=== PATIENT | male | born 1955 | race Caucasian/White ===

== ENCOUNTER → 2016-10-24 | Outpatient (CLI) | payer SELFPAY ==
--- NOTE | 2016-10-25 09:10 | CT ---
CLINICAL INDICATION: Screening COMPARISON: None PROCEDURE: Gated acquisition of images through the mediastinum was performed without contrast. Data set was used for calcium scoring. FINDINGS: Total coronary calcium score is 726 LM: 114 LAD: 83 LCX: 276 RCA: 253 Extracardiac findings: No pathologically enlarged lymph nodes. The visualized portions of aorta are unremarkable. No airs pace disease, effusion, or pneumothorax identified. Normal-sized heart. The soft tissues and osseous structures are unremarkable. Evaluation is limited without IV contrast. IMPRESSION: 1. Total calcium score of 726, placing the patient at approximately the 75th to 90th percentile for males of equivalent age. The calcium score is compatible with extensive atherosclerotic plaque with a high likelihood of at least 1 significant coronary narrowing. Reported By:
== END ==
LOC: RAD 15:26
PROVIDERS: ATTEND Internal Medicine
DX: Z13.6 Encounter for screening for cardiovascular disorders (principal)

== ENCOUNTER 2022-06-19 13:14 | Observation (INO) ==
[2022-06-19 13:27] VITALS: BMI 31.2
--- NOTE | 2022-06-19 13:31 | DR.CP ---
HPI Time Seen Time Seen by Provider: 06/19/22 13:30 PCP Primary Care Physician: betito Complaint Chief Complaint Doctor Comments: 66 y/o male presents for evaluation. Not feeling well for past several months. Has a worsening cough, with chest congestion, ovver the past several days. Had a + covid test at home yesterday. Having generalized weakness. Has recurrent R hip pain, since falling , recently. Pain worse with standing, sharp, does not radiate. Worse with standing, walking. Better with rest. + cough, productive of congestion. + running fever, with chills, since yesterday. Denies nausea, vomiting, diarrhea, urinary problems. Chief Complaint:: pt states that he fell today when trying to sit back down in his recliner and couldnt get back up. pt denies chest pain. pt took covid test yesterday and was positive. pt has also had cough and congestion since april when he got his flu shot. Reviewed Nurses Notes Review: Yes Source History Provided: Patient Mode of Arrival Mode of Arrival: EMS Timing Onset of Chief Complaint: 06/19/22 PMH PMH Past Medical History: Yes Past Medical History: Hypertension Past Surgical History: Yes Surgical History: Cholecystectomy Family History History of Family Medical Conditions: Yes Family Medical History: NH, Coronary Artery Disease and Hypertension Social History Does patient currently use any type of tobacco product: No Have you used tobacco products in the last 12 months: No Type of Tobacco Use: None Does any household member use tobacco: No Alcohol Use: None Do you use any recreational Drugs:: No Lives With: Alone Lives Where: Home Infectious screening In the last 2 months have you had wt loss of >10#?: NO Have you had fever, night sweats or hemotysis?: No Have you traveled outside the country in the last 6 months?: No Isolation: Droplet ROS Review of Systems Constitutional: Chills, Fever and Weakness Eyes: No Symptoms Reported ENTM: Nose Congestion Respiratoy: Productive Cough and Short of Breath Cardiovascular: No Symptoms Reported Gastrointestinal/Abdominal: No Symptoms Reported Genitourinary: No Symptoms Reported Neurological: Weakness Musculoskeletal: Right and Hip Integumentary: No Symptoms Reported Hematologic/Lymphatic: No Symptoms Reported Psychiatric: No Symptoms Reported All Other Systems: Reviewed and Negative PE Vitals Vitals: Temperature 101.3 F Pulse Rate 76 Respiratory Rate 35 Blood Pressure [Left Arm] 149/71 Blood Pressure 113/55 O2 Sat by Pulse Oximetry 97 General General Appearance: Alert and In No Apparent Distress Head Head Exam: Normal Inspection Eyes Eye exam: PERRL and EOMI ENT ENT Exam: Normal Oropharynx and Mucous Membranes Moist Respiratory Respiratory Exam: Normal Lung Sounds Bilat; negative Accessory Muscle Use or Respiratory Distress Respiratory Exam: Bilateral: Clear to Auscultation Cardiovascular Cardiovascular Exam: Regular Rate, Normal Rhythm and Normal Heart Sounds Abdominal Exam Abdominal Exam: Normal Bowel Sounds and Soft; negative Tenderness Extremities Extremities Exam: Normal Inspection and Other (has good internal/external ROM of R hip); negative Edema Back Back Exam: Normal Inspection; negative Tenderness Psychiatric Psychiatric Exam: Normal Affect Skin Skin Exam: Warm and Dry COURSE Treatment Treatment: 66 y/o male with cough, + for covid at home. W/u initiated. + for Covid here. CXR with mild changes, c/w viral respiratory infection. Labs overall acceptable. Pulse ox droppin to 90-91% at rest. Placed on O2. Labs overall acceptable. Discussed with Dr Holloway, will admit to Dr Gutierrez, for Covid. Treated with IV steroids. R hip x-ray done, no fractures from earlier fall at home. ROR Labs Reviewed Laboratory Results Reviewed?: Yes Result Diagrams: 06/19/22 13:50 06/19/22 13:50 Laboratory: WBC 9.5 X10^3/uL (3.6-10.0) 06/19/22 13:50 RBC 3.59 X10^6/uL (4.7-6.0) L 06/19/22 13:50 Hgb 10.8 g/dL (13.5-18.0) L 06/19/22 13:50 Hct 32.5 % (42.0-54.0) L 06/19/22 13:50 MCV 90.5 fL (80.0-100.0) 06/19/22 13:50 MCH 30.0 pg (27.0-34.0) 06/19/22 13:50 MCHC 33.2 g/dL (33.0-35.0) 06/19/22 13:50 RDW 15.5 % (11.6-16.5) 06/19/22 13:50 Plt Count 194 X10^3/uL (150.0-450.0) 06/19/22 13:50 MPV 7.9 fL (7.4-11.0) 06/19/22 13:50 Neut % (Auto) 84.5 % (42.0-75.0) H 06/19/22 13:50 Lymph % (Auto) 7.2 % (21.0-51.0) L 06/19/22 13:50 Johnston % (Auto) 7.7 % (0.0-13.0) 06/19/22 13:50 Eos % (Auto) 0.1 % (0.9-2.9) L 06/19/22 13:50 Baso % (Auto) 0.5 % (0.2-1.0) 06/19/22 13:50 Neut # (Auto) 8.1 x10^3/uL (2.2-4.8) H 06/19/22 13:50 Lymph # (Auto) 0.7 X10^3/uL (1.3-2.9) L 06/19/22 13:50 Johnston # (Auto) 0.7 x10^3/uL (0.3-0.8) 06/19/22 13:50 Eos # (Auto) 0.0 x10^3/uL (0.0-0.2) 06/19/22 13:50 Baso # (Auto) 0.0 X10^3/uL (0.0-0.1) 06/19/22 13:50 Absolute Nucleated RBC 0.0 /100WBC 06/19/22 13:50 D-Dimer 1.84 ug/ml (0.0-0.57) H 06/19/22 18:54 Sodium 135 mmol/L (136-145) L 06/19/22 13:50 Corrected Sodium 135 mmol/L (136-145) L 06/19/22 13:50 Potassium 4.4 mmol/L (3.5-5.1) 06/19/22 13:50 Chloride 100 mmol/L (98-107) 06/19/22 13:50 Carbon Dioxide 26.8 mmol/L (21-32) 06/19/22 13:50 BUN 16 mg/dL (7-18) 06/19/22 13:50 Creatinine 1.21 mg/dL (0.70-1.30) 06/19/22 13:50 Est GFR (MDRD) Af Amer > 60 (>60) 06/19/22 13:50 Est GFR (MDRD) Non-Af > 60 (>60) 06/19/22 13:50 Glucose 120 mg/dL (65-99) H 06/19/22 13:50 Calcium 8.4 mg/dL (8.5-10.1) L 06/19/22 13:50 Corrected Calcium TNP 06/19/22 13:50 Total Bilirubin 0.20 mg/dL (0.2-1.0) 06/19/22 13:50 AST 22 Units/L (15-37) 06/19/22 13:50 ALT 17 Units/L (12-78) 06/19/22 13:50 Alkaline Phosphatase 76 Units/L (46-116) 06/19/22 13:50 B-Natriuretic Peptide 212 pg/mL (0-79) H 06/19/22 18:54 Total Protein 7.1 g/dL (6.4-8.2) 06/19/22 13:50 Albumin 3.6 g/dL (3.4-5.0) 06/19/22 13:50 Globulin 3.5 g/dL (2.5-4.5) 06/19/22 13:50 Albumin/Globulin Ratio 1.0 Ratio (1.1-2.1) L 06/19/22 13:50 Lipase 150 Units/L (73-393) 06/19/22 13:50 Specimen Type Clean catch urine 06/19/22 14:09 Urine Color Yellow (YELLOW) 06/19/22 14:09 Urine Appearance Slightly hazy (CLEAR) 06/19/22 14:09 Urine pH 5.0 (5.0 - 8.0) 06/19/22 14:09 Ur Specific [place] 1.015 (1.000-1.030) 06/19/22 14:09 Urine Protein 2+ (NEGATIVE) 06/19/22 14:09 Urine Glucose (UA) Negative (NEGATIVE) 06/19/22 14:09 Urine Ketones 2+ (NEGATIVE) 06/19/22 14:09 Urine Blood Negative (NEGATIVE) 06/19/22 14:09 Urine Nitrite Negative (NEGATIVE) 06/19/22 14:09 Urine Bilirubin Negative (NEGATIVE) 06/19/22 14:09 Urine Urobilinogen Normal (NORMAL) 06/19/22 14:09 Ur Leukocyte Esterase 1+ (NEGATIVE) 06/19/22 14:09 Urine RBC 0-2 /HPF (0-3) 06/19/22 14:09 Urine WBC 3-5 /HPF (0-5) 06/19/22 14:09 Ur Squamous Epith Cells Rare /HPF (NEGATIVE) 06/19/22 14:09 Urine Bacteria Trace /HPF (NEGATIVE) 06/19/22 14:09 Urine Mucus Rare /HPF (NEGATIVE) 06/19/22 14:09 Ur Culture Indicated? No/not indicated 06/19/22 14:09 SARS-CoV-2 (PCR) Positive (NEGATIVE) A 06/19/22 14:00 Influenza Type A (PCR) Negative (NEGATIVE) 06/19/22 14:00 Influenza Type B (PCR) Negative (NEGATIVE) 06/19/22 14:00 RSV (PCR) Negative (NEGATIVE) 06/19/22 14:00 + Covid Opioid Opioid Risk Tool Age (Chase box if 16-45): No History of Preadolescent Sexual Abuse: No Total: 0 Total Score Risk Category: Low Risk Copyright: John FRY predicting aberrant behaviors Discharge Plan Diagnosis Discharge Problem: COVID-19 virus infection, Hypoxia Discharge Plan Patient Disposition: 30 STILL A PATIENT Condition: Stable Orders to Discharge Patient Discharge Orders: Transfer (Routine); Ordered 06/19/22 Ordered By: Derek Aguayo
[2022-06-19] MEDS ORDERED: NS 1,000 ML IV 1,000 ML IV ONE (13:39)
[2022-06-19] MEDS ORDERED: TYLENOL 500 MG TAB EXTRA STRENGTH PO ONE ×2 (13:40→13:58)
[2022-06-19] MEDS ORDERED: NS 1,000 ML IV 1,000 ML ONE (13:58)
[2022-06-19 13:59] LABS: BASOPHILS % (AUTO) 0.5 % (0.2-1.0); EOSINOPHILS % (AUTO) 0.1 % (0.9-2.9); HEMATOCRIT 32.5 % (42.0-54.0); HEMOGLOBIN 10.8 g/dL (13.5-18.0); LYMPHOCYTES # (AUTO) 0.7 X10^3/uL (1.3-2.9); LYMPHOCYTES % (AUTO) 7.2 % (21.0-51.0); MEAN CORPUSCULAR HGB CONC 33.2 g/dL (33.0-35.0); MEAN CORPUSCULAR VOLUME 90.5 fL (80.0-100.0); MEAN PLATELET VOLUME 7.9 fL (7.4-11.0); MONOCYTES # (AUTO) 0.7 x10^3/uL (0.3-0.8); MONOCYTES % (AUTO) 7.7 % (0.0-13.0); NEUTROPHILS # (AUTO) 8.1 x10^3/uL (2.2-4.8); NEUTROPHILS % (AUTO) 84.5 % (42.0-75.0); RED BLOOD COUNT 3.59 X10^6/uL (4.7-6.0); RED CELL DISTRIBUTION WIDTH 15.5 % (11.6-16.5); WHITE BLOOD COUNT 9.5 X10^3/uL (3.6-10.0)
[2022-06-19 14:09] LABS: ALANINE AMINOTRANSFERASE 17 Units/L (12-78); ALBUMIN 3.6 g/dL (3.4-5.0); ALKALINE PHOSPHATASE 76 Units/L (46-116); ASPARTATE AMINO TRANSFERASE 22 Units/L (15-37); BLOOD UREA NITROGEN 16 mg/dL (7-18); CALCIUM 8.4 mg/dL (8.5-10.1); CARBON DIOXIDE 26.8 mmol/L (21-32); CHLORIDE 100 mmol/L (98-107); COR NA(FOR HYPERGLY) 135 mmol/L (136-145); CREATININE 1.21 mg/dL (0.70-1.30); LIPASE 150 Units/L (73-393); SODIUM 135 mmol/L (136-145); TOTAL PROTEIN 7.1 g/dL (6.4-8.2); eGFR NON BLACK RACES > 60 (>60)
[2022-06-19 14:15] LABS: BILIRUBIN,URINE NEGATIVE (NEGATIVE); BLOOD/HEMOGLOBIN,URINE NEGATIVE (NEGATIVE); GLUCOSE, URINE NEGATIVE (NEGATIVE); KETONES,URINE 2+ (NEGATIVE); LEUKOCYTE ESTERASE ,URINE 1+ (NEGATIVE); NITRITES,URINE NEGATIVE (NEGATIVE); PROTEIN,URINE 2+ (NEGATIVE); UROBILINOGEN,URINE NORMAL (NORMAL)
[2022-06-19 14:23] LABS: APPEARANCE,URINE SLIGHTLY HAZY (CLEAR); BACTERIA,URINE TRACE /HPF (NEGATIVE); COLOR,URINE YELLOW (YELLOW); RBC,URINE 0-2 /HPF (0-3); SQUAMOUS EPITHELIAL CELL,UR RARE /HPF (NEGATIVE)
--- NOTE | 2022-06-19 14:47 | RAD ---
HISTORYSOB, COVID HTN. ORTHO[Cough]. [Dyspnea].[Single portable view] of the chest.Comparison: [None].Findings:The trachea is midline. The cardiac silhouette is unremarkable.There are increased interstitial opacities seen, suggesting a bronchitis or a viral respiratory infection. Please correlate medically and clinically. The remaining lungs [are otherwise clear without focal infiltrate or pleural effusion]. The bony thorax [is unremarkable].IMPRESSION:Chest findings suggesting a viral respiratory tract infection, as above.No lobar infiltrates or pleural effusion seen. Please correlate medically.Electronically signed by: CLAYTON MCNALLY III (Jun 19, 2022 14:45:51)
[2022-06-19] MEDS ORDERED: TUSSIONEX PENNKINETIC SUSP PO PRN (18:14)
[2022-06-19] MEDS ORDERED: TYLENOL 325 MG TAB PO PRN (20:02)
[2022-06-19] MEDS ORDERED: NS 1/2 1,000 ML IV 1,000 ML IV ONE (20:33)
[2022-06-19] MEDS ORDERED: REMDESIVIR 200 MG in NS 250 ML IV 250 ML IV ONE (20:40)
[2022-06-19] MEDS: NS 1/2 1,000 ML IV 1,000 ML IV SCH (20:44)
[2022-06-19] MEDS: SNACK - Diabetic Appropriate PO SCH (20:44)
[2022-06-19] MEDS: SOLU-Medrol 125 MG VIAL IVP SCH (20:44)
[2022-06-19] MEDS: MILK OF MAGNESIA PO SCH (20:45)
[2022-06-19] MEDS: THIAMINE HCL INJ IVP SCH (20:45)
[2022-06-19] MEDS: MELATONIN PO SCH (20:47)
[2022-06-19] MEDS: KLONOPIN TAB 1 MG PO SCH (20:47)
[2022-06-19] MEDS: LIPITOR TAB 80 MG PO SCH (20:47)
[2022-06-19] MEDS: ASCORBIC ACID INJ MULTI-DOSE VIAL 1,500 MG in NS 50 ML IV 50 ML IV SCH (20:47)
--- NOTE | 2022-06-19 20:47 | RAD ---
HISTORYS/P FALL THIS AM, C/O PAIN RT HIPSTUDYHIP-RIGHTCOMPARISONNone availableTECHNIQUERight hip radiographs, 2 views, AP pelvis and frog leg lateral projectionsFINDINGSNo fracture or dislocation.Mild bilateral hip joint degenerative changes.Soft tissues are unremarkable.IMPRESSIONNo acute osseous abnormality.Electronically signed by: Leandro Barraza (Jun 19, 2022 20:45:07)
[2022-06-19] MEDS: PULMICORT NEB TX 0.5 MG NEB SCH (20:56)
[2022-06-19] MEDS: ACCUNEB 1.25 MG NEBULE NEB SCH (20:56)
[2022-06-19] MEDS ORDERED: ELIQUIS PO SCH (21:00)
[2022-06-19] MEDS: TESSALON PERLES PO SCH (21:59)
[2022-06-20] MEDS: SOLU-Medrol 125 MG VIAL IVP SCH ×4 (02:37→20:38)
[2022-06-20] MEDS: ASCORBIC ACID INJ MULTI-DOSE VIAL 1,500 MG in NS 50 ML IV 50 ML IV SCH ×4 (02:38→20:40)
[2022-06-20 05:15] LABS: BASOPHILS % (AUTO) 0.3 % (0.2-1.0); HEMATOCRIT 31.7 % (42.0-54.0); HEMOGLOBIN 10.8 g/dL (13.5-18.0); LYMPHOCYTES # (AUTO) 0.5 X10^3/uL (1.3-2.9); LYMPHOCYTES % (AUTO) 5.5 % (21.0-51.0); MEAN CORPUSCULAR HEMOGLOBIN 30.6 pg (27.0-34.0); MEAN PLATELET VOLUME 9.2 fL (7.4-11.0); MONOCYTES # (AUTO) 0.3 x10^3/uL (0.3-0.8); MONOCYTES % (AUTO) 3.4 % (0.0-13.0); NEUTROPHILS # (AUTO) 7.6 x10^3/uL (2.2-4.8); NEUTROPHILS % (AUTO) 90.8 % (42.0-75.0); RED BLOOD COUNT 3.52 X10^6/uL (4.7-6.0); RED CELL DISTRIBUTION WIDTH 15.5 % (11.6-16.5); WHITE BLOOD COUNT 8.4 X10^3/uL (3.6-10.0)
[2022-06-20] MEDS: TESSALON PERLES PO SCH ×3 (05:26→20:59)
[2022-06-20 05:28] LABS: ALANINE AMINOTRANSFERASE 15 Units/L (12-78); ALBUMIN 3.2 g/dL (3.4-5.0); ALKALINE PHOSPHATASE 69 Units/L (46-116); ASPARTATE AMINO TRANSFERASE 19 Units/L (15-37); BLOOD UREA NITROGEN 17 mg/dL (7-18); CALCIUM 8.3 mg/dL (8.5-10.1); CHLORIDE 103 mmol/L (98-107); COR CA(FOR HYPOALB) 8.9 mg/dL (8.5-10.1); COR NA(FOR HYPERGLY) 138 mmol/L (136-145); CREATINE KINASE 131 Units/L (39-308); CREATININE 0.98 mg/dL (0.70-1.30); SODIUM 137 mmol/L (136-145); TOTAL PROTEIN 6.9 g/dL (6.4-8.2); eGFR NON BLACK RACES > 60 (>60)
[2022-06-20 05:33] LABS: BAND NEUTROPHILS % 8 % (0-10)
[2022-06-20 05:34] LABS: PLATELET MORPHOLOGY COMMENT NORMAL (NORMAL)
[2022-06-20 06:02] LABS: ABG ALLEN TEST POS; ABG BASE EXCESS 1.6 mmol/L (-2.0-2.0); ABG HCO3 27.2 mmol/L (22-26)
--- NOTE | 2022-06-20 08:01 | RAD ---
HISTORYCOVID; HYPOXIASTUDYCHEST, 1 [id number]/06/2022.TECHNIQUEAP view of the chestFINDINGSThe cardiac and mediastinal contours appear stable. Similar appearing mild scattered interstitial opacities. No definite pleural effusion or pneumothorax.IMPRESSIONNo significant change compared to prior radiograph.Electronically signed by: Jefe Costa (Jun 20, 2022 08:00:02)
[2022-06-20] MEDS: LOVENOX INJ 100 MG SYR SC SCH (09:20)
[2022-06-20] MEDS: ZyrTEC TAB 10 MG PO SCH (09:20)
[2022-06-20] MEDS: ACCUNEB 1.25 MG NEBULE NEB SCH ×4 (09:20→21:10)
[2022-06-20] MEDS: PROTONIX INJ 40 MG VIAL IVP SCH (09:20)
[2022-06-20] MEDS: CYMBALTA PO SCH (09:20)
[2022-06-20] MEDS: THIAMINE HCL INJ IVP SCH ×2 (09:20→20:38)
[2022-06-20] MEDS: ASPIRIN EC 81 MG PO SCH (09:20)
[2022-06-20] MEDS: MILK OF MAGNESIA PO SCH ×2 (09:20→20:37)
[2022-06-20] MEDS: PULMICORT NEB TX 0.5 MG NEB SCH ×2 (09:20→21:10)
[2022-06-20] MEDS: ZINC SULFATE PO SCH (09:20)
[2022-06-20] MEDS: ZESTRIL TAB 40 MG PO SCH (09:20)
[2022-06-20] MEDS: VITAMIN D3 125 mcg (5,000 UNITS) PO SCH (09:20)
[2022-06-20] MEDS: LEVAQUIN PREMIX IV 500 MG 500 MG/100 ML BAG IV SCH (09:20)
[2022-06-20] MEDS: NS 1/2 1,000 ML IV 1,000 ML IV SCH ×2 (09:52→20:36)
[2022-06-20] MEDS: REMDESIVIR 100 MG in NS 250 ML IV 250 ML IV SCH (14:27)
[2022-06-20] MEDS: NovoLIN R (or HumuLIN R) SUBCUT PRN (17:11)
[2022-06-20] MEDS ORDERED: NS 1/2 1,000 ML IV 1,000 ML IV ONE (19:03)
[2022-06-20] MEDS: LIPITOR TAB 80 MG PO SCH (20:37)
[2022-06-20] MEDS: SNACK - Diabetic Appropriate PO SCH (20:38)
[2022-06-20] MEDS: KLONOPIN TAB 1 MG PO SCH (20:39)
[2022-06-20] MEDS: MELATONIN PO SCH (20:40)
[2022-06-21] MEDS ORDERED: NS 1/2 1,000 ML IV 1,000 ML IV ONE ×2 (03:06→20:43)
[2022-06-21] MEDS: ASCORBIC ACID INJ MULTI-DOSE VIAL 1,500 MG in NS 50 ML IV 50 ML IV SCH ×4 (03:14→20:59)
[2022-06-21] MEDS: SOLU-Medrol 125 MG VIAL IVP SCH ×4 (03:14→21:03)
[2022-06-21] MEDS: NS 1/2 1,000 ML IV 1,000 ML IV SCH ×3 (03:15→23:21)
[2022-06-21] MEDS: TESSALON PERLES PO SCH ×3 (05:26→21:01)
[2022-06-21 06:09] LABS: BASOPHILS % (AUTO) 0.2 % (0.2-1.0); HEMATOCRIT 30.5 % (42.0-54.0); HEMOGLOBIN 10.4 g/dL (13.5-18.0); LYMPHOCYTES # (AUTO) 0.8 X10^3/uL (1.3-2.9); LYMPHOCYTES % (AUTO) 5.8 % (21.0-51.0); MEAN CORPUSCULAR HEMOGLOBIN 30.3 pg (27.0-34.0); MEAN CORPUSCULAR HGB CONC 34.2 g/dL (33.0-35.0); MEAN CORPUSCULAR VOLUME 88.6 fL (80.0-100.0); MEAN PLATELET VOLUME 9.1 fL (7.4-11.0); MONOCYTES # (AUTO) 0.4 x10^3/uL (0.3-0.8); MONOCYTES % (AUTO) 3.2 % (0.0-13.0); NEUTROPHILS # (AUTO) 12.2 x10^3/uL (2.2-4.8); NEUTROPHILS % (AUTO) 90.8 % (42.0-75.0); RED BLOOD COUNT 3.44 X10^6/uL (4.7-6.0); RED CELL DISTRIBUTION WIDTH 16.1 % (11.6-16.5); WHITE BLOOD COUNT 13.4 X10^3/uL (3.6-10.0)
[2022-06-21 06:26] LABS: ALANINE AMINOTRANSFERASE 23 Units/L (12-78); ALBUMIN 2.8 g/dL (3.4-5.0); ALKALINE PHOSPHATASE 65 Units/L (46-116); ASPARTATE AMINO TRANSFERASE 29 Units/L (15-37); BLOOD UREA NITROGEN 22 mg/dL (7-18); CARBON DIOXIDE 25.9 mmol/L (21-32); CHLORIDE 107 mmol/L (98-107); COR NA(FOR HYPERGLY) 140 mmol/L (136-145); CREATININE 0.91 mg/dL (0.70-1.30); SODIUM 139 mmol/L (136-145); TOTAL PROTEIN 6.3 g/dL (6.4-8.2); eGFR NON BLACK RACES > 60 (>60)
[2022-06-21 06:37] LABS: BAND NEUTROPHILS % 21 % (0-10)
[2022-06-21 06:38] LABS: PLATELET MORPHOLOGY COMMENT NORMAL (NORMAL)
[2022-06-21] MEDS: ACCUNEB 1.25 MG NEBULE NEB SCH ×4 (08:36→20:28)
[2022-06-21] MEDS: PULMICORT NEB TX 0.5 MG NEB SCH ×2 (08:36→20:27)
[2022-06-21] MEDS: LOVENOX INJ 100 MG SYR SC SCH (08:44)
[2022-06-21] MEDS: LEVAQUIN PREMIX IV 500 MG 500 MG/100 ML BAG IV SCH (08:44)
[2022-06-21] MEDS: REMDESIVIR 100 MG in NS 250 ML IV 250 ML IV SCH (08:45)
[2022-06-21] MEDS: PROTONIX INJ 40 MG VIAL IVP SCH (08:45)
[2022-06-21] MEDS: ZESTRIL TAB 40 MG PO SCH (08:46)
[2022-06-21] MEDS: CYMBALTA PO SCH (08:46)
[2022-06-21] MEDS: VITAMIN D3 125 mcg (5,000 UNITS) PO SCH (08:46)
[2022-06-21] MEDS: THIAMINE HCL INJ IVP SCH ×2 (08:47→21:03)
[2022-06-21] MEDS: ZyrTEC TAB 10 MG PO SCH (08:47)
[2022-06-21] MEDS: ASPIRIN EC 81 MG PO SCH (08:47)
[2022-06-21] MEDS: ZINC SULFATE PO SCH (08:47)
[2022-06-21] MEDS: MILK OF MAGNESIA PO SCH ×2 (08:51→21:00)
[2022-06-21] MEDS ORDERED: COLACE CAP 100 MG PO PRN (09:37)
--- NOTE | 2022-06-21 11:53 | DR.H&P ---
H&P - History & Physical for Day of: H&P Date: 06/19/22 - Chief Complaint Chief Complaint: GENERALIZED WEAKNESS, PRODUCTIVE COUGH, CHEST CONGESTION, SHORTNESS OF BREATH, FEVER, AND A RECENT FALL. - History of Present Illness History of Present Illness: IS A 66 YEAR OLD PATIENT OF OURS WHO PRESENTED TO THE ER WITH COMPLAINTS OF GENERALIZED WEAKNESS, PRODUCTIVE COUGH, CHEST CONGESTION, SHORTNESS OF BREATH, FEVER, AND A RECENT FALL. SYMPTOMS STARTED TWO DAYS AGO. PATIENT REPORTS TESTING POSITIVE FOR COVID-19 AT HOME YESTERDAY. HE ALSO COMPLAINS OF RECURRENT RIGHT HIP PAIN SINCE FALLING RECENTLY. PAIN IS WORSE WITH STANDING, IS SHARP, AND DOES NOT RADIATE. HE RATES PAIN A 4/10. HE DENIES NAUSEA, VOMITING, DIARRHEA, OR URINARY PROBLEMS. HIS PMH INCLUDES: HTN, INSOMNIA, AND CHOLECYSTECTOMY. ON ARRIVAL TO THE ER, VITALS WERE: 101.3-96-20-91%-138/63. HE WAS PLACED ON OXYGEN VIA NASAL CANNULA AT 2 LPM. LABS WERE OBTAINED. WBC 9.5, RBC 3.59, HGB 10.8, HCT 32.5, D-DIMER 1.84, SODIUM 135, POTASSIUM 4.4, CHLORIDE 100, CARBON DIOXIDE 26.8, BUN 16, CREATININE 1.21, GLUCOSE 120, CALCIUM 8.4, AST 22, ALT 17, ALK PHOS 76, CRP 132, BNP 212, TOTAL PROTEIN 7.1, ALBUMIN 3.6. URINALYSIS WAS OBTAINED. WBC 3-5, RBC 0-2, LEUKOCYTES 1+, BACTERIA TRACE, KETONES 2+. COVID-19 POSITIVE. INFLUENZA AND RSV NEGATIVE. BLOOD CULTURES WERE SET UP. A CHEST XRAY WAS OBTAINED. IT REVEALED: Chest findings suggesting a viral respiratory tract infection. No lobar infiltrates or pleural effusion seen. A RIGHT HIP XRAY WAS OBTAINED AND REVEALED: NO ACUTE OSSEOUS ABNORMALITY. IN THE ER, HE WAS GIVEN A NORMAL SALINE BOLUS, TYLENOL 1G PO X 1, AND REMDESIVIR 200MG IV X 1. HE WAS ADMITTED TO THE HOSPITAL OBSERVATION STATUS FOR FURTHER EVALUATION AND TREATMENT OF PNEUMONIA DUE TO COVID-19 AND HYPOXIA. HE WAS STARTED ON NORMAL SALINE AT 75 ML/HR, REMDESIVIR 100MG IV DAILY, LEVAQUIN 500MG IV DAILY, SOLU-MEDROL 125MG IV Q6H, ASCORBIC ACID 1500MG IV Q6H, PULMICORT NEBS BID, ACCUNEBS QID, ECOTRIN 81MG PO DAILY, LIPITOR 80MG HS, TESSALON PERLES 200MG PO TID, ZYRTEC 10MG PO DAILY, TUSSIONEX 5ML PO Q12H PRN, KLONOPIN 2MG PO HS, COLACE 200MG PO Q12H PRN, CYMBALTA 60MG PO DAILY, LOVENOX 100MG SC DAILY, HUMULIN R SLIDING SCALE, OTBS ACHS, ZESTRIL 40MG PO DAILY, MILK OF MAGNESIA BID, MELATONIN 10MG PO HS, PROTONIX 40MG IV DAILY, THIAMINE 200MG IV BID, ZINC SULFATE 220MG PO DAILY. OTHERWISE, WE WILL FOLLOW-UP WITH AM LABS AND CHEST XRAY AND CONTINUE TO MONITOR. TIME SPENT ON CLINICAL ASSESSMENT, REVIWING LABS AND IMAGING, DECISION MAKING, AND DOCUMENTATION GREATER THAN 75 MINUTES. - Past Medical History Past Medical History: Hypertension Additional Medical History: INSOMNIA - Past Surgical History Surgical History: Cholecystectomy, Ortho Surgery - Family History Family Medical History: Hypertension - Social History Does patient currently use any type of tobacco product: No Have you used tobacco products in the last 12 months: No Type of Tobacco Use: None Does any household member use tobacco: No Alcohol Use: None Drug Use: None - Medications Home Medications: cephalexin [From Keflex] Allergy (Intermediate, Verified 12/05/18 07:45) CONFUSION - Review of Systems Constitutional: Fever, Chills, Weakness Eyes: No Symptoms Reported Respiratory: Cough, Shortness of Breath, SOB with Excertion Cardiovascular: No Symptoms Reported Gastrointestinal: No Symptoms Reported Genitourinary: No Symptoms Reported Musculoskeletal: No Symptoms Reported Skin: No Symptoms Reported Neurological: Weakness - Physical Exam Vital Signs: Temperature 98.0 F Pulse Rate [Left Radial] 77 Pulse Rate 88 Respiratory Rate 18 Blood Pressure [Left Arm] 128/64 Blood Pressure 113/55 O2 Sat by Pulse Oximetry 93 Oriented: Normal Eyes: Normal Ear: Normal Nose: Normal Throat: Normal Respiratory: Diminished Throughout Cardiovascular: Normal : Normal Auscultation: Bowel Sounds: Normal Palpation: Normal Tenderness: Normal Skin: Normal Musculoskeletal: Right, Hip, Tender Psychiatric: Normal Mood Description: Calm Affect: Normal Speech Pattern: Clear - Assessment/Plan (1) Pneumonia due to COVID-19 virus Status: Acute Plan: ADMIT, NORMAL SALINE AT 75 ML/HR, REMDESIVIR 100MG IV DAILY, LEVAQUIN 500MG IV DAILY, SOLU-MEDROL 125MG IV Q6H, ASCORBIC ACID 1500MG IV Q6H, PULMICORT NEBS BID, ACCUNEBS QID, ECOTRIN 81MG PO DAILY, LIPITOR 80MG HS, TESSALON PERLES 200MG PO TID, ZYRTEC 10MG PO DAILY, TUSSIONEX 5ML PO Q12H PRN, KLONOPIN 2MG PO HS, COLACE 200MG PO Q12H PRN, CYMBALTA 60MG PO DAILY, LOVENOX 100MG SC DAILY, HUMULIN R SLIDING SCALE, OTBS ACHS, ZESTRIL 40MG PO DAILY, MILK OF MAGNESIA BID, MELATONIN 10MG PO HS, PROTONIX 40MG IV DAILY, THIAMINE 200MG IV BID, ZINC SULFATE 220MG PO DAILY. (2) Hypoxia Status: Acute (3) HTN (hypertension) Qualifiers: Hypertension type: primary hypertension Qualified Code(s): I10 - Essential (primary) hypertension Status: Chronic - Allergies Allergies/Adverse Reactions: Allergies Allergy/AdvReac Type Severity Reaction Status Date / Time cephalexin [From Keflex] Allergy Intermediate CONFUSION Verified 12/05/18 07:45
--- NOTE | 2022-06-21 13:07 | RAD ---
HISTORYCOVID-19, shortness of breathSTUDYChest AP [id number]/07/2022FINDINGSHear t size is normal. Evita are normal. There is now some perihilar subsegmental atelectasis in the left upper and left lower lobes. Left lung is free of acute infiltrates. Mild interstitial lung changes are present at the right lung base. Remainder of the right lung is clear. No pleural effusions or pneumothoraces identified. Bony thorax is unremarkable.IMPRESSIONRight basilar interstitial lung infiltrateNo other lung infiltrates identifiedPerihilar left upper and left lower lobe subsegmental atelectasisElectronically signed by: YOANA MARTINEZ (Jun 21, 2022 13:05:50)
[2022-06-21] MEDS: NovoLIN R (or HumuLIN R) SUBCUT PRN (16:19)
[2022-06-21] MEDS: MELATONIN PO SCH (21:00)
[2022-06-21] MEDS: KLONOPIN TAB 1 MG PO SCH (21:01)
[2022-06-21] MEDS: LIPITOR TAB 80 MG PO SCH (21:02)
[2022-06-21] MEDS: SNACK - Diabetic Appropriate PO SCH (21:03)
[2022-06-22] MEDS: ASCORBIC ACID INJ MULTI-DOSE VIAL 1,500 MG in NS 50 ML IV 50 ML IV SCH ×4 (03:23→20:30)
[2022-06-22] MEDS: SOLU-Medrol 125 MG VIAL IVP SCH ×4 (03:24→20:42)
[2022-06-22] MEDS: TESSALON PERLES PO SCH ×3 (05:43→21:13)
[2022-06-22 05:53] LABS: BASOPHILS % (AUTO) 0.2 % (0.2-1.0); HEMATOCRIT 28.1 % (42.0-54.0); HEMOGLOBIN 9.4 g/dL (13.5-18.0); LYMPHOCYTES # (AUTO) 0.7 X10^3/uL (1.3-2.9); LYMPHOCYTES % (AUTO) 4.4 % (21.0-51.0); MEAN CORPUSCULAR HEMOGLOBIN 29.8 pg (27.0-34.0); MEAN CORPUSCULAR HGB CONC 33.6 g/dL (33.0-35.0); MEAN CORPUSCULAR VOLUME 88.7 fL (80.0-100.0); MEAN PLATELET VOLUME 9.4 fL (7.4-11.0); MONOCYTES # (AUTO) 0.4 x10^3/uL (0.3-0.8); MONOCYTES % (AUTO) 2.6 % (0.0-13.0); NEUTROPHILS # (AUTO) 14.5 x10^3/uL (2.2-4.8); NEUTROPHILS % (AUTO) 92.8 % (42.0-75.0); RED BLOOD COUNT 3.17 X10^6/uL (4.7-6.0); RED CELL DISTRIBUTION WIDTH 15.5 % (11.6-16.5); WHITE BLOOD COUNT 15.6 X10^3/uL (3.6-10.0)
[2022-06-22 06:11] LABS: ALANINE AMINOTRANSFERASE 21 Units/L (12-78); ALBUMIN 2.7 g/dL (3.4-5.0); ALKALINE PHOSPHATASE 63 Units/L (46-116); ASPARTATE AMINO TRANSFERASE 20 Units/L (15-37); BLOOD UREA NITROGEN 21 mg/dL (7-18); CALCIUM 7.6 mg/dL (8.5-10.1); CARBON DIOXIDE 29.3 mmol/L (21-32); CHLORIDE 107 mmol/L (98-107); COR CA(FOR HYPOALB) 8.6 mg/dL (8.5-10.1); COR NA(FOR HYPERGLY) 142 mmol/L (136-145); CREATININE 0.98 mg/dL (0.70-1.30); SODIUM 141 mmol/L (136-145); eGFR NON BLACK RACES > 60 (>60)
[2022-06-22 06:19] LABS: BAND NEUTROPHILS % 5 % (0-10); PLATELET MORPHOLOGY COMMENT NORMAL (NORMAL)
[2022-06-22 06:20] LABS: OVALOCYTES SLIGHT
--- NOTE | 2022-06-22 07:33 | RAD ---
HISTORYShortness of breathSTUDYChest AP [id number]/08/2022FINDINGSThe heart size is normal. The celia are normal. Perihilar subsegmental atelectasis again identified in the left upper lobe. It is unchanged. The lung pang are otherwise clear. The right basilar interstitial infiltrate present on the prior examination is no longer identified. No pleural effusions are identified. Bony thorax is unremarkable.IMPRESSIONNo acute infiltrates on today's examinationLeft perihilar upper lobe subsegmental atelectasis unchangedElectronically signed by: YOANA MARTINEZ (Jun 22, 2022 07:31:59)
[2022-06-22] MEDS: LEVAQUIN PREMIX IV 500 MG 500 MG/100 ML BAG IV SCH (08:42)
[2022-06-22] MEDS: REMDESIVIR 100 MG in NS 250 ML IV 250 ML IV SCH (08:42)
[2022-06-22] MEDS: THIAMINE HCL INJ IVP SCH ×2 (08:43→20:38)
[2022-06-22] MEDS: PROTONIX INJ 40 MG VIAL IVP SCH (08:43)
[2022-06-22] MEDS: MILK OF MAGNESIA PO SCH ×2 (08:44→20:30)
[2022-06-22] MEDS: VITAMIN D3 125 mcg (5,000 UNITS) PO SCH (08:44)
[2022-06-22] MEDS: ZINC SULFATE PO SCH (08:45)
[2022-06-22] MEDS: ZyrTEC TAB 10 MG PO SCH (08:45)
[2022-06-22] MEDS: ASPIRIN EC 81 MG PO SCH (08:45)
[2022-06-22] MEDS: CYMBALTA PO SCH (08:45)
[2022-06-22] MEDS: LOVENOX INJ 100 MG SYR SC SCH (08:45)
[2022-06-22] MEDS: ZESTRIL TAB 40 MG PO SCH (08:45)
[2022-06-22] MEDS: ACCUNEB 1.25 MG NEBULE NEB SCH ×4 (09:08→20:45)
[2022-06-22] MEDS: PULMICORT NEB TX 0.5 MG NEB SCH ×2 (09:08→20:46)
[2022-06-22] MEDS: NS 1/2 1,000 ML IV 1,000 ML IV SCH ×2 (11:46→18:48)
--- NOTE | 2022-06-22 12:50 | PCM.PROG ---
Progress Note - Progress Note for Day of Date of Exam: 06/21/22 - Subjective Subjective: IS CURRENTLY OBSERVATION STATUS FOR TREATMENT OF PNEUMONIA DUE TO COVID-19 AND HYPOXIA. TODAY, HE IS ALERT AND ORIENTED, LYING IN BED ON MORNING ROUNDS. HE CONTINUES WITH COMPLAINTS OF COUGH, SHORTNESS OF BREATH, AND WEAKNESS. ON EXAMINATION, HEART IS REGULAR IN RATE AND RHYTHM. BILATERAL LUNGS ARE NOTED WITH DIMINISHED LUNG SOUNDS THROUGHOUT. ABDOMEN IS ROUND, SOFT, AND NON-TENDER WITH NORMAL BOWEL SOUNDS NOTED IN ALL QUADRANTS. NO UPPER OR LOWER EXTREMITY EDEMA NOTED. HIS VITALS THIS MORNING ARE: 97.8-89-20-96%-143/72. HE IS CURRENTLY UTILIZING OXYGEN VIA NASAL CANNULA AT 3 LPM. LABS WERE OBTAINED. WBC 13.4, RBC 3.44, HGB 10.4, HCT 30.5, PLT COUNT 187, SODIUM 139, POTASSIUM 4.8, CHLORIDE 107, BUN 22, CREATININE 0.91, GLUCOSE 147, CALCIUM 8.0, AST 29, ALT 23, ALK PHOS 65, CRP 159.40, BNP 256, TOTAL PROTEIN 6.3, ALBUMIN 2.8. BLOOD CULTURES ARE PENDING. A CHEST XRAY WAS OBTAINED AND REVEALED: Right basilar interstitial lung infiltrate. No other lung infiltrates identified. Perihilar left upper and left lower lobe sub-segmental atelectasis. HE IS CURRENTLY RECEIVING NORMAL SALINE AT 75 ML/HR, REMDESIVIR 100MG IV DAILY, LEVAQUIN 500MG IV DAILY, SOLU- MEDROL 125MG IV Q6H, ASCORBIC ACID 1500MG IV Q6H, PULMICORT NEBS BID, ACCUNEBS QID, ECOTRIN 81MG PO DAILY, LIPITOR 80MG HS, TESSALON PERLES 200MG PO TID, ZYRTEC 10MG PO DAILY, TUSSIONEX 5ML PO Q12H PRN, KLONOPIN 2MG PO HS, COLACE 200MG PO Q12H PRN, CYMBALTA 60MG PO DAILY, LOVENOX 100MG SC DAILY, HUMULIN R SLIDING SCALE, OTBS ACHS, ZESTRIL 40MG PO DAILY, MILK OF MAGNESIA BID, MELATONIN 10MG PO HS, PROTONIX 40MG IV DAILY, THIAMINE 200MG IV BID, ZINC SULFATE 220MG PO DAILY. WE WILL CONTINUE WITH CURRENT PLAN OF CARE TODAY. OTHERWISE, WE WILL FOLLOW-UP WITH AM LABS AND CONTINUE TO MONITOR. TIME SPENT ON CLINICAL ASSESSMENT, REVIWING LABS AND IMAGING, DECISION MAKING, AND DOCUMENTATION GREATER THAN 45 MINUTES. - Past Medical Family Social History Past Med/Fam/Surg Hx: No changes since H&P Allergies: Allergies cephalexin [From Keflex] Allergy (Intermediate, Verified 12/05/18 07:45) CONFUSION - Review of Systems ROS: No change since H&P - Vital Signs and I&O's Vital Signs: Temperature 98.0 F Pulse Rate [Left Radial] 80 Pulse Rate 98 Respiratory Rate 20 Blood Pressure [Left Arm] 139/65 Blood Pressure 113/55 O2 Sat by Pulse Oximetry 95 Intake and Output: Intake & Output 06/20/22 06/21/22 06/22/22 06/23/22 11:59 11:59 11:59 11:59 Intake Total 1220 / 1220 3588 / 3588 2648 / 2648 Output Total 1100 / 1100 820 / 820 1060 / 1060 Balance 120 / 120 2768 / 2768 1588 / 1588 - Physical Exam Oriented: Normal Eyes: Normal Ear: Normal Nose: Normal Throat: Normal Respiratory: Generalized, Diminished Cardiovascular: Normal : Normal Auscultation: Bowel Sounds: Normal Palpation: Normal Tenderness: Normal Skin: Normal Musculoskeletal: Right, Hip, Tender Psychiatric: Normal Mood Description: Calm Affect: Normal Speech Pattern: Clear, Appropriate - Laboratory and Diagnostics Result Diagrams: 06/22/22 05:30 06/22/22 05:30 Labs: 06/19/22 20:20 Blood Blood Culture - Preliminary 06/19/22 20:13 Blood Blood Culture - Preliminary Laboratory WBC 15.6 X10^3/uL (3.6-10.0) H 06/22/22 05:30 RBC 3.17 X10^6/uL (4.7-6.0) L 06/22/22 05:30 Hgb 9.4 g/dL (13.5-18.0) L 06/22/22 05:30 Hct 28.1 % (42.0-54.0) L 06/22/22 05:30 MCV 88.7 fL (80.0-100.0) 06/22/22 05:30 MCH 29.8 pg (27.0-34.0) 06/22/22 05:30 MCHC 33.6 g/dL (33.0-35.0) 06/22/22 05:30 RDW 15.5 % (11.6-16.5) 06/22/22 05:30 Plt Count 196 X10^3/uL (150.0-450.0) 06/22/22 05:30 Plt Count Comment Adequate (ADEQUATE) 06/22/22 05:30 MPV 9.4 fL (7.4-11.0) 06/22/22 05:30 Neut % (Auto) 92.8 % (42.0-75.0) H 06/22/22 05:30 Lymph % (Auto) 4.4 % (21.0-51.0) L 06/22/22 05:30 [place] % (Auto) 2.6 % (0.0-13.0) 06/22/22 05:30 Eos % (Auto) 0.0 % (0.9-2.9) L 06/22/22 05:30 Baso % (Auto) 0.2 % (0.2-1.0) 06/22/22 05:30 Neut # (Auto) 14.5 x10^3/uL (2.2-4.8) H 06/22/22 05:30 Lymph # (Auto) 0.7 X10^3/uL (1.3-2.9) L 06/22/22 05:30 [place] # (Auto) 0.4 x10^3/uL (0.3-0.8) 06/22/22 05:30 Eos # (Auto) 0.0 x10^3/uL (0.0-0.2) 06/22/22 05:30 Baso # (Auto) 0.0 X10^3/uL (0.0-0.1) 06/22/22 05:30 Absolute Nucleated RBC 0.0 /100WBC 06/22/22 05:30 Total Counted 100 06/22/22 05:30 Neutrophils % (Manual) 90 % (39-76) H 06/22/22 05:30 Band Neutrophils % 5 % (0-10) 06/22/22 05:30 Lymphocytes % (Manual) 4 % (13-43) L 06/22/22 05:30 Monocytes % (Manual) 1 % (4-9) L 06/22/22 05:30 Plt Morphology Comment Normal (NORMAL) 06/22/22 05:30 RBC Morphology Abnormal (NORMAL) 06/22/22 05:30 Ovalocytes Slight A 06/22/22 05:30 D-Dimer 1.84 ug/ml (0.0-0.57) H 06/19/22 18:54 Sample Site Rrad 06/20/22 06:01 ABG pH 7.380 (7.35-7.45) 06/20/22 06:01 ABG pCO2 46.0 mmHg (35.0-45.0) H 06/20/22 06:01 ABG pO2 70.0 mmHg (80.0-100.0) L 06/20/22 06:01 ABG HCO3 27.2 mmol/L (22-26) H 06/20/22 06:01 ABG O2 Saturation 93.0 % (90-100) 06/20/22 06:01 ABG Base Excess 1.6 mmol/L (-2.0-2.0) 06/20/22 06:01 Saji Test Pos 06/20/22 06:01 A-a Gradient 101.0 mmHg 06/20/22 06:01 FiO2 32.0 06/20/22 06:01 Blood Gas Comments Betina abg well-mtf 06/20/22 06:01 Sodium 141 mmol/L (136-145) 06/22/22 05:30 Corrected Sodium 142 mmol/L (136-145) 06/22/22 05:30 Potassium 4.6 mmol/L (3.5-5.1) 06/22/22 05:30 Chloride 107 mmol/L (98-107) 06/22/22 05:30 Carbon Dioxide 29.3 mmol/L (21-32) 06/22/22 05:30 BUN 21 mg/dL (7-18) H 06/22/22 05:30 Creatinine 0.98 mg/dL (0.70-1.30) 06/22/22 05:30 Est GFR (MDRD) Af Amer > 60 (>60) 06/22/22 05:30 Est GFR (MDRD) Non-Af > 60 (>60) 06/22/22 05:30 Glucose 149 mg/dL (65-99) H 06/22/22 05:30 POC Glucose (mg/dL) 165 mg/dL (65-99) H 06/22/22 11:53 Calcium 7.6 mg/dL (8.5-10.1) L 06/22/22 05:30 Corrected Calcium 8.6 mg/dL (8.5-10.1) 06/22/22 05:30 Ferritin 33 ng/mL (26-388) 06/19/22 18:54 Total Bilirubin 0.20 mg/dL (0.2-1.0) 06/22/22 05:30 AST 20 Units/L (15-37) 06/22/22 05:30 ALT 21 Units/L (12-78) 06/22/22 05:30 Alkaline Phosphatase 63 Units/L (46-116) 06/22/22 05:30 Creatine Kinase 131 Units/L (39-308) 06/20/22 04:29 Troponin I High Sens 6.4 ng/L (4.0-60.0) 06/20/22 04:29 C-Reactive Protein 76.50 mg/L (0-3.0) H 06/22/22 05:30 B-Natriuretic Peptide 189 pg/mL (0-79) H 06/22/22 05:30 Total Protein 6.0 g/dL (6.4-8.2) L 06/22/22 05:30 Albumin 2.7 g/dL (3.4-5.0) L 06/22/22 05:30 Globulin 3.3 g/dL (2.5-4.5) 06/22/22 05:30 Albumin/Globulin Ratio 0.8 Ratio (1.1-2.1) L 06/22/22 05:30 Lipase 150 Units/L (73-393) 06/19/22 13:50 Specimen Type Clean catch urine 06/19/22 14:09 Urine Color Yellow (YELLOW) 06/19/22 14:09 Urine Appearance Slightly hazy (CLEAR) 06/19/22 14:09 Urine pH 5.0 (5.0 - 8.0) 06/19/22 14:09 Ur Specific [place] 1.015 (1.000-1.030) 06/19/22 14:09 Urine Protein 2+ (NEGATIVE) 06/19/22 14:09 Urine Glucose (UA) Negative (NEGATIVE) 06/19/22 14:09 Urine Ketones 2+ (NEGATIVE) 06/19/22 14:09 Urine Blood Negative (NEGATIVE) 06/19/22 14:09 Urine Nitrite Negative (NEGATIVE) 06/19/22 14:09 Urine Bilirubin Negative (NEGATIVE) 06/19/22 14:09 Urine Urobilinogen Normal (NORMAL) 06/19/22 14:09 Ur Leukocyte Esterase 1+ (NEGATIVE) 06/19/22 14:09 Urine RBC 0-2 /HPF (0-3) 06/19/22 14:09 Urine WBC 3-5 /HPF (0-5) 06/19/22 14:09 Ur Squamous Epith Cells Rare /HPF (NEGATIVE) 06/19/22 14:09 Urine Bacteria Trace /HPF (NEGATIVE) 06/19/22 14:09 Urine Mucus Rare /HPF (NEGATIVE) 06/19/22 14:09 Ur Culture Indicated? No/not indicated 06/19/22 14:09 SARS-CoV-2 (PCR) Positive (NEGATIVE) A 06/19/22 14:00 Influenza Type A (PCR) Negative (NEGATIVE) 06/19/22 14:00 Influenza Type B (PCR) Negative (NEGATIVE) 06/19/22 14:00 RSV (PCR) Negative (NEGATIVE) 06/19/22 14:00 - Plan (1) Pneumonia due to COVID-19 virus Status: Acute Plan: NORMAL SALINE AT 75 ML/HR, REMDESIVIR 100MG IV DAILY, LEVAQUIN 500MG IV DAILY, SOLU-MEDROL 125MG IV Q6H, ASCORBIC ACID 1500MG IV Q6H, PULMICORT NEBS BID, ACCUNEBS QID, ECOTRIN 81MG PO DAILY, LIPITOR 80MG HS, TESSALON PERLES 200MG PO TID, ZYRTEC 10MG PO DAILY, TUSSIONEX 5ML PO Q12H PRN, KLONOPIN 2MG PO HS, COLACE 200MG PO Q12H PRN, CYMBALTA 60MG PO DAILY, LOVENOX 100MG SC DAILY, HUMULIN R SLIDING SCALE, OTBS ACHS, ZESTRIL 40MG PO DAILY, MILK OF MAGNESIA BID, MELATONIN 10MG PO HS, PROTONIX 40MG IV DAILY, THIAMINE 200MG IV BID, ZINC SULFATE 220MG PO DAILY. (2) Hypoxia Status: Acute (3) HTN (hypertension) Status: Chronic Qualifiers: Hypertension type: primary hypertension Qualified Code(s): I10 - Essential (primary) hypertension
--- NOTE | 2022-06-22 13:13 | PCM.PROG ---
Progress Note - Progress Note for Day of Date of Exam: 06/22/22 - Subjective Subjective: IS CURRENTLY OBSERVATION STATUS FOR TREATMENT OF PNEUMONIA DUE TO COVID-19 AND HYPOXIA. TODAY, HE IS ALERT AND ORIENTED, LYING IN BED ON MORNING ROUNDS. HE CONTINUES WITH COMPLAINTS OF COUGH, SHORTNESS OF BREATH, AND WEAKNESS. HE DOES REPORT SOME IMPROVEMENT IN SYMPTOMS SINCE YESTERDAY. ON EXAMINATION, HEART IS REGULAR IN RATE AND RHYTHM. BILATERAL LUNGS ARE NOTED WITH DIMINISHED LUNG SOUNDS THROUGHOUT. ABDOMEN IS ROUND, SOFT, AND NON-TENDER WITH NORMAL BOWEL SOUNDS NOTED IN ALL QUADRANTS. NO UPPER OR LOWER EXTREMITY EDEMA NOTED. HIS VITALS THIS MORNING ARE: 98.0-80-20-95%-139/65. HE IS CURRENTLY UTILIZING OXYGEN VIA NASAL CANNULA AT 3 LPM. LABS WERE OBTAINED. WBC 15.6, RBC 3.17, HGB 9.4, HCT 28.1, SODIUM 141, POTASSIUM 4.6, CHLORIDE 107, BUN 21, CREATININE 0.98, GLUCOSE 149, CALCIUM 7.6, CRP 76.50, BNP 189, TOTAL PROTEIN 6.0, ALBUMIN 2.7. BLOOD CULTURES ARE PENDING. A CHEST XRAY WAS OBTAINED AND REVEALED: The heart size is normal. The celia are normal. Perihilar subsegmental atelectasis again identified in the left upper lobe. It is unchanged. The lung pang are otherwise clear. The right basilar interstitial infiltrate present on the prior examination is no longer identified. No pleural effusions are identified. Bony thorax is unremarkable. HE IS CURRENTLY RECEIVING NORMAL SALINE AT 75 ML/HR, REMDESIVIR 100MG IV DAILY, LEVAQUIN 500MG IV DAILY, SOLU- MEDROL 125MG IV Q6H, ASCORBIC ACID 1500MG IV Q6H, PULMICORT NEBS BID, ACCUNEBS QID, ECOTRIN 81MG PO DAILY, LIPITOR 80MG HS, TESSALON PERLES 200MG PO TID, ZYRTEC 10MG PO DAILY, TUSSIONEX 5ML PO Q12H PRN, KLONOPIN 2MG PO HS, COLACE 200MG PO Q12H PRN, CYMBALTA 60MG PO DAILY, LOVENOX 100MG SC DAILY, HUMULIN R S LIDING SCALE, OTBS ACHS, ZESTRIL 40MG PO DAILY, MILK OF MAGNESIA BID, MELATONIN 10MG PO HS, PROTONIX 40MG IV DAILY, THIAMINE 200MG IV BID, ZINC SULFATE 220MG PO DAILY. WE WILL CONTINUE WITH CURRENT PLAN OF CARE TODAY. OTHERWISE, WE WILL FOLLOW-UP WITH AM LABS AND CONTINUE TO MONITOR. TIME SPENT ON CLINICAL ASSESSMENT, REVIWING LABS AND IMAGING, DECISION MAKING, AND DOCUMENTATION GREATER THAN 45 MINUTES. - Past Medical Family Social History Past Med/Fam/Surg Hx: No changes since H&P Allergies: Allergies cephalexin [From Keflex] Allergy (Intermediate, Verified 12/05/18 07:45) CONFUSION - Review of Systems ROS: No change since H&P - Vital Signs and I&O's Vital Signs: Temperature 98.0 F Pulse Rate [Left Radial] 80 Pulse Rate 98 Respiratory Rate 20 Blood Pressure [Left Arm] 139/65 Blood Pressure 113/55 O2 Sat by Pulse Oximetry 95 Intake and Output: Intake & Output 06/20/22 06/21/22 06/22/22 06/23/22 11:59 11:59 11:59 11:59 Intake Total 1220 / 1220 3588 / 3588 2648 / 2648 Output Total 1100 / 1100 820 / 820 1060 / 1060 Balance 120 / 120 2768 / 2768 1588 / 1588 - Physical Exam Oriented: Normal Eyes: Normal Ear: Normal Nose: Normal Throat: Normal Respiratory: Generalized, Diminished Cardiovascular: Normal : Normal Auscultation: Bowel Sounds: Normal Palpation: Normal Tenderness: Normal Skin: Normal Musculoskeletal: Right, Hip, Tender Psychiatric: Normal Mood Description: Calm Affect: Normal Speech Pattern: Clear, Appropriate - Laboratory and Diagnostics Result Diagrams: 06/22/22 05:30 06/22/22 05:30 Labs: 06/19/22 20:20 Blood Blood Culture - Preliminary 06/19/22 20:13 Blood Blood Culture - Preliminary Laboratory WBC 15.6 X10^3/uL (3.6-10.0) H 06/22/22 05:30 RBC 3.17 X10^6/uL (4.7-6.0) L 06/22/22 05:30 Hgb 9.4 g/dL (13.5-18.0) L 06/22/22 05:30 Hct 28.1 % (42.0-54.0) L 06/22/22 05:30 MCV 88.7 fL (80.0-100.0) 06/22/22 05:30 MCH 29.8 pg (27.0-34.0) 06/22/22 05:30 MCHC 33.6 g/dL (33.0-35.0) 06/22/22 05:30 RDW 15.5 % (11.6-16.5) 06/22/22 05:30 Plt Count 196 X10^3/uL (150.0-450.0) 06/22/22 05:30 Plt Count Comment Adequate (ADEQUATE) 06/22/22 05:30 MPV 9.4 fL (7.4-11.0) 06/22/22 05:30 Neut % (Auto) 92.8 % (42.0-75.0) H 06/22/22 05:30 Lymph % (Auto) 4.4 % (21.0-51.0) L 06/22/22 05:30 [place] % (Auto) 2.6 % (0.0-13.0) 06/22/22 05:30 Eos % (Auto) 0.0 % (0.9-2.9) L 06/22/22 05:30 Baso % (Auto) 0.2 % (0.2-1.0) 06/22/22 05:30 Neut # (Auto) 14.5 x10^3/uL (2.2-4.8) H 06/22/22 05:30 Lymph # (Auto) 0.7 X10^3/uL (1.3-2.9) L 06/22/22 05:30 [place] # (Auto) 0.4 x10^3/uL (0.3-0.8) 06/22/22 05:30 Eos # (Auto) 0.0 x10^3/uL (0.0-0.2) 06/22/22 05:30 Baso # (Auto) 0.0 X10^3/uL (0.0-0.1) 06/22/22 05:30 Absolute Nucleated RBC 0.0 /100WBC 06/22/22 05:30 Total Counted 100 06/22/22 05:30 Neutrophils % (Manual) 90 % (39-76) H 06/22/22 05:30 Band Neutrophils % 5 % (0-10) 06/22/22 05:30 Lymphocytes % (Manual) 4 % (13-43) L 06/22/22 05:30 Monocytes % (Manual) 1 % (4-9) L 06/22/22 05:30 Plt Morphology Comment Normal (NORMAL) 06/22/22 05:30 RBC Morphology Abnormal (NORMAL) 06/22/22 05:30 Ovalocytes Slight A 06/22/22 05:30 D-Dimer 1.84 ug/ml (0.0-0.57) H 06/19/22 18:54 Sample Site Rrad 06/20/22 06:01 ABG pH 7.380 (7.35-7.45) 06/20/22 06:01 ABG pCO2 46.0 mmHg (35.0-45.0) H 06/20/22 06:01 ABG pO2 70.0 mmHg (80.0-100.0) L 06/20/22 06:01 ABG HCO3 27.2 mmol/L (22-26) H 06/20/22 06:01 ABG O2 Saturation 93.0 % (90-100) 06/20/22 06:01 ABG Base Excess 1.6 mmol/L (-2.0-2.0) 06/20/22 06:01 Saji Test Pos 06/20/22 06:01 A-a Gradient 101.0 mmHg 06/20/22 06:01 FiO2 32.0 06/20/22 06:01 Blood Gas Comments Betina abg well-mtf 06/20/22 06:01 Sodium 141 mmol/L (136-145) 06/22/22 05:30 Corrected Sodium 142 mmol/L (136-145) 06/22/22 05:30 Potassium 4.6 mmol/L (3.5-5.1) 06/22/22 05:30 Chloride 107 mmol/L (98-107) 06/22/22 05:30 Carbon Dioxide 29.3 mmol/L (21-32) 06/22/22 05:30 BUN 21 mg/dL (7-18) H 06/22/22 05:30 Creatinine 0.98 mg/dL (0.70-1.30) 06/22/22 05:30 Est GFR (MDRD) Af Amer > 60 (>60) 06/22/22 05:30 Est GFR (MDRD) Non-Af > 60 (>60) 06/22/22 05:30 Glucose 149 mg/dL (65-99) H 06/22/22 05:30 POC Glucose (mg/dL) 165 mg/dL (65-99) H 06/22/22 11:53 Calcium 7.6 mg/dL (8.5-10.1) L 06/22/22 05:30 Corrected Calcium 8.6 mg/dL (8.5-10.1) 06/22/22 05:30 Ferritin 33 ng/mL (26-388) 06/19/22 18:54 Total Bilirubin 0.20 mg/dL (0.2-1.0) 06/22/22 05:30 AST 20 Units/L (15-37) 06/22/22 05:30 ALT 21 Units/L (12-78) 06/22/22 05:30 Alkaline Phosphatase 63 Units/L (46-116) 06/22/22 05:30 Creatine Kinase 131 Units/L (39-308) 06/20/22 04:29 Troponin I High Sens 6.4 ng/L (4.0-60.0) 06/20/22 04:29 C-Reactive Protein 76.50 mg/L (0-3.0) H 06/22/22 05:30 B-Natriuretic Peptide 189 pg/mL (0-79) H 06/22/22 05:30 Total Protein 6.0 g/dL (6.4-8.2) L 06/22/22 05:30 Albumin 2.7 g/dL (3.4-5.0) L 06/22/22 05:30 Globulin 3.3 g/dL (2.5-4.5) 06/22/22 05:30 Albumin/Globulin Ratio 0.8 Ratio (1.1-2.1) L 06/22/22 05:30 Lipase 150 Units/L (73-393) 06/19/22 13:50 Specimen Type Clean catch urine 06/19/22 14:09 Urine Color Yellow (YELLOW) 06/19/22 14:09 Urine Appearance Slightly hazy (CLEAR) 06/19/22 14:09 Urine pH 5.0 (5.0 - 8.0) 06/19/22 14:09 Ur Specific [place] 1.015 (1.000-1.030) 06/19/22 14:09 Urine Protein 2+ (NEGATIVE) 06/19/22 14:09 Urine Glucose (UA) Negative (NEGATIVE) 06/19/22 14:09 Urine Ketones 2+ (NEGATIVE) 06/19/22 14:09 Urine Blood Negative (NEGATIVE) 06/19/22 14:09 Urine Nitrite Negative (NEGATIVE) 06/19/22 14:09 Urine Bilirubin Negative (NEGATIVE) 06/19/22 14:09 Urine Urobilinogen Normal (NORMAL) 06/19/22 14:09 Ur Leukocyte Esterase 1+ (NEGATIVE) 06/19/22 14:09 Urine RBC 0-2 /HPF (0-3) 06/19/22 14:09 Urine WBC 3-5 /HPF (0-5) 06/19/22 14:09 Ur Squamous Epith Cells Rare /HPF (NEGATIVE) 06/19/22 14:09 Urine Bacteria Trace /HPF (NEGATIVE) 06/19/22 14:09 Urine Mucus Rare /HPF (NEGATIVE) 06/19/22 14:09 Ur Culture Indicated? No/not indicated 06/19/22 14:09 SARS-CoV-2 (PCR) Positive (NEGATIVE) A 06/19/22 14:00 Influenza Type A (PCR) Negative (NEGATIVE) 06/19/22 14:00 Influenza Type B (PCR) Negative (NEGATIVE) 06/19/22 14:00 RSV (PCR) Negative (NEGATIVE) 06/19/22 14:00 - Plan (1) Pneumonia due to COVID-19 virus Status: Acute Plan: NORMAL SALINE AT 75 ML/HR, REMDESIVIR 100MG IV DAILY, LEVAQUIN 500MG IV DAILY, SOLU-MEDROL 125MG IV Q6H, ASCORBIC ACID 1500MG IV Q6H, PULMICORT NEBS BID, ACCUNEBS QID, ECOTRIN 81MG PO DAILY, LIPITOR 80MG HS, TESSALON PERLES 200MG PO TID, ZYRTEC 10MG PO DAILY, TUSSIONEX 5ML PO Q12H PRN, KLONOPIN 2MG PO HS, COLACE 200MG PO Q12H PRN, CYMBALTA 60MG PO DAILY, LOVENOX 100MG SC DAILY, HUMUL IN R SLIDING SCALE, OTBS ACHS, ZESTRIL 40MG PO DAILY, MILK OF MAGNESIA BID, MELATONIN 10MG PO HS, PROTONIX 40MG IV DAILY, THIAMINE 200MG IV BID, ZINC SULFATE 220MG PO DAILY. (2) Hypoxia Status: Acute (3) HTN (hypertension) Status: Chronic Qualifiers: Hypertension type: primary hypertension Qualified Code(s): I10 - Essential (primary) hypertension
[2022-06-22] MEDS ORDERED: NS 1/2 1,000 ML IV 1,000 ML IV ONE (18:46)
[2022-06-22] MEDS: MELATONIN PO SCH (20:32)
[2022-06-22] MEDS: KLONOPIN TAB 1 MG PO SCH (20:34)
[2022-06-22] MEDS: LIPITOR TAB 80 MG PO SCH (20:34)
[2022-06-22] MEDS: SNACK - Diabetic Appropriate PO SCH (20:48)
[2022-06-23] MEDS: NS 1/2 1,000 ML IV 1,000 ML IV SCH ×2 (00:58→15:02)
[2022-06-23] MEDS: SOLU-Medrol 125 MG VIAL IVP SCH (03:04)
[2022-06-23] MEDS: ASCORBIC ACID INJ MULTI-DOSE VIAL 1,500 MG in NS 50 ML IV 50 ML IV SCH ×4 (03:04→21:44)
[2022-06-23] MEDS: TESSALON PERLES PO SCH ×3 (05:53→21:41)
[2022-06-23 06:11] LABS: HEMOGLOBIN 9.4 g/dL (13.5-18.0)
[2022-06-23 06:17] LABS: BASOPHILS % (AUTO) 0.2 % (0.2-1.0); HEMATOCRIT 27.5 % (42.0-54.0); LYMPHOCYTES % (AUTO) 6.2 % (21.0-51.0); MEAN CORPUSCULAR HEMOGLOBIN 30.6 pg (27.0-34.0); MEAN CORPUSCULAR HGB CONC 34.3 g/dL (33.0-35.0); MEAN CORPUSCULAR VOLUME 89.3 fL (80.0-100.0); MEAN PLATELET VOLUME 8.9 fL (7.4-11.0); MONOCYTES # (AUTO) 0.6 x10^3/uL (0.3-0.8); MONOCYTES % (AUTO) 3.8 % (0.0-13.0); NEUTROPHILS # (AUTO) 14.1 x10^3/uL (2.2-4.8); NEUTROPHILS % (AUTO) 89.8 % (42.0-75.0); RED BLOOD COUNT 3.08 X10^6/uL (4.7-6.0); RED CELL DISTRIBUTION WIDTH 15.8 % (11.6-16.5); WHITE BLOOD COUNT 15.7 X10^3/uL (3.6-10.0)
[2022-06-23 06:24] LABS: ALANINE AMINOTRANSFERASE 21 Units/L (12-78); ALBUMIN 2.5 g/dL (3.4-5.0); ALKALINE PHOSPHATASE 58 Units/L (46-116); ASPARTATE AMINO TRANSFERASE 20 Units/L (15-37); BLOOD UREA NITROGEN 20 mg/dL (7-18); CALCIUM 7.5 mg/dL (8.5-10.1); CARBON DIOXIDE 28.5 mmol/L (21-32); CHLORIDE 110 mmol/L (98-107); COR CA(FOR HYPOALB) 8.7 mg/dL (8.5-10.1); COR NA(FOR HYPERGLY) 144 mmol/L (136-145); CREATININE 0.84 mg/dL (0.70-1.30); SODIUM 143 mmol/L (136-145); TOTAL PROTEIN 5.6 g/dL (6.4-8.2); eGFR NON BLACK RACES > 60 (>60)
[2022-06-23] MEDS: ACCUNEB 1.25 MG NEBULE NEB SCH ×4 (09:10→20:15)
[2022-06-23] MEDS: PULMICORT NEB TX 0.5 MG NEB SCH ×2 (09:10→20:15)
[2022-06-23] MEDS: ZINC SULFATE PO SCH (09:17)
[2022-06-23] MEDS: VITAMIN D3 125 mcg (5,000 UNITS) PO SCH (09:17)
[2022-06-23] MEDS: ZESTRIL TAB 40 MG PO SCH (09:17)
[2022-06-23] MEDS: ZyrTEC TAB 10 MG PO SCH (09:18)
[2022-06-23] MEDS: ASPIRIN EC 81 MG PO SCH (09:18)
[2022-06-23] MEDS: CYMBALTA PO SCH (09:18)
[2022-06-23] MEDS: LOVENOX INJ 100 MG SYR SC SCH (09:26)
[2022-06-23] MEDS: MILK OF MAGNESIA PO SCH ×2 (10:46→21:39)
[2022-06-23] MEDS: PROTONIX INJ 40 MG VIAL IVP SCH (11:15)
[2022-06-23] MEDS: THIAMINE HCL INJ IVP SCH ×2 (11:15→21:42)
[2022-06-23] MEDS: LEVAQUIN PREMIX IV 500 MG 500 MG/100 ML BAG IV SCH (11:16)
[2022-06-23] MEDS: REMDESIVIR 100 MG in NS 250 ML IV 250 ML IV SCH (11:16)
[2022-06-23] MEDS: DECADRON TAB PO SCH (12:00)
[2022-06-23] MEDS ORDERED: NS 1/2 1,000 ML IV 1,000 ML IV ONE (13:42)
--- NOTE | 2022-06-23 19:43 | RAD ---
HISTORYShortness of breathSTUDYChest AP [id number]/2022FINDINGSPati ent is rotated to the right. Heart size is upper limits normal. Evita are normal. Perihilar subsegmental atelectasis is present in the left upper lobe and narrowing the left lung base. Remainder of the lung pang are clear. No definite pleural effusions are identified.IMPRESSIONNo change left upper lobe perihilar subsegmental atelectasisNew left lower lobe perihilar subsegmental atelectasisNo definite infiltratesElectronically signed by: YOANA MARTINEZ (Jun 23, 2022 19:42:16)
[2022-06-23] MEDS: SNACK - Diabetic Appropriate PO SCH (20:30)
[2022-06-23] MEDS: LIPITOR TAB 80 MG PO SCH (21:40)
[2022-06-23] MEDS: MELATONIN PO SCH (21:40)
[2022-06-23] MEDS: ELIQUIS PO SCH (21:42)
[2022-06-23] MEDS: KLONOPIN TAB 1 MG PO SCH (21:51)
[2022-06-24] MEDS: ASCORBIC ACID INJ MULTI-DOSE VIAL 1,500 MG in NS 50 ML IV 50 ML IV SCH ×2 (02:15→09:08)
[2022-06-24] MEDS ORDERED: NS 1/2 1,000 ML IV 1,000 ML IV ONE (05:13)
[2022-06-24] MEDS: TESSALON PERLES PO SCH (05:46)
[2022-06-24] MEDS: NS 1/2 1,000 ML IV 1,000 ML IV SCH (05:46)
[2022-06-24 06:07] LABS: BASOPHILS % (AUTO) 0.2 % (0.2-1.0); HEMATOCRIT 28.4 % (42.0-54.0); HEMOGLOBIN 9.7 g/dL (13.5-18.0); LYMPHOCYTES # (AUTO) 1.7 X10^3/uL (1.3-2.9); MEAN CORPUSCULAR HEMOGLOBIN 30.1 pg (27.0-34.0); MEAN CORPUSCULAR HGB CONC 34.1 g/dL (33.0-35.0); MEAN CORPUSCULAR VOLUME 88.4 fL (80.0-100.0); MEAN PLATELET VOLUME 8.2 fL (7.4-11.0); MONOCYTES # (AUTO) 0.7 x10^3/uL (0.3-0.8); MONOCYTES % (AUTO) 5.3 % (0.0-13.0); NEUTROPHILS # (AUTO) 10.6 x10^3/uL (2.2-4.8); NEUTROPHILS % (AUTO) 81.5 % (42.0-75.0); RED BLOOD COUNT 3.21 X10^6/uL (4.7-6.0); RED CELL DISTRIBUTION WIDTH 15.7 % (11.6-16.5)
[2022-06-24 06:26] LABS: ALANINE AMINOTRANSFERASE 37 Units/L (12-78); ALBUMIN 2.5 g/dL (3.4-5.0); ALKALINE PHOSPHATASE 58 Units/L (46-116); ASPARTATE AMINO TRANSFERASE 25 Units/L (15-37); BLOOD UREA NITROGEN 20 mg/dL (7-18); CALCIUM 7.4 mg/dL (8.5-10.1); CARBON DIOXIDE 29.4 mmol/L (21-32); CHLORIDE 110 mmol/L (98-107); COR CA(FOR HYPOALB) 8.6 mg/dL (8.5-10.1); COR NA(FOR HYPERGLY) 143 mmol/L (136-145); CREATININE 0.87 mg/dL (0.70-1.30); SODIUM 143 mmol/L (136-145); TOTAL PROTEIN 5.5 g/dL (6.4-8.2); eGFR NON BLACK RACES > 60 (>60)
[2022-06-24 06:38] LABS: METAMYELOCYTES % 2; PLATELET MORPHOLOGY COMMENT NORMAL (NORMAL)
[2022-06-24] MEDS: ACCUNEB 1.25 MG NEBULE NEB SCH (08:20)
[2022-06-24] MEDS: PULMICORT NEB TX 0.5 MG NEB SCH (08:20)
[2022-06-24] MEDS: ZINC SULFATE PO SCH (09:06)
[2022-06-24] MEDS: ZyrTEC TAB 10 MG PO SCH (09:06)
[2022-06-24] MEDS: DECADRON TAB PO SCH (09:06)
[2022-06-24] MEDS: CYMBALTA PO SCH (09:06)
[2022-06-24] MEDS: ZESTRIL TAB 40 MG PO SCH (09:07)
[2022-06-24] MEDS: PROTONIX INJ 40 MG VIAL IVP SCH (09:07)
[2022-06-24] MEDS: ELIQUIS PO SCH (09:07)
[2022-06-24] MEDS: LEVAQUIN PREMIX IV 500 MG 500 MG/100 ML BAG IV SCH (09:07)
[2022-06-24] MEDS: VITAMIN D3 125 mcg (5,000 UNITS) PO SCH (09:07)
[2022-06-24] MEDS: ASPIRIN EC 81 MG PO SCH (09:08)
[2022-06-24] MEDS: THIAMINE HCL INJ IVP SCH (09:08)
[2022-06-24] MEDS: MILK OF MAGNESIA PO SCH (09:09)
[2022-06-24 09:35] VITALS: BP 175/74
--- NOTE | 2022-06-24 22:44 | RAD ---
HISTORYSOBSTUDYCHEST, 1 VIEWCOMPARISONDecember 2021TECHNIQUEChest radiographic imaging, AP portable projection, 1 imageFINDINGSNo cardiomegaly.No focal airspace disease.No pleural effusion.No pneumothorax.No acute osseous abnormality.IMPRESSIONNo imaging findings of acute cardiopulmonary disease.Electronically signed by: Leandro Barraza (Jun 24, 2022 22:42:14)
== END 2022-06-24 11:15 | disposition home or self-care (01) ==
LOC: ER 13:14 → MED/SURG 13:14
PROVIDERS: ADMIT Obstetrics & Gynecology Obstetrics; ATTEND Internal Medicine
DX: U07.1 COVID-19; W18.39XA Other fall on same level, initial encounter; R79.82 Elevated C-reactive protein (CRP); R09.02 Hypoxemia; R06.02 Shortness of breath; E11.65 Type 2 diabetes mellitus with hyperglycemia; J12.82 Pneumonia due to coronavirus disease 2019; R79.1 Abnormal coagulation profile; R53.1 Weakness

== ENCOUNTER 2024-07-18 03:08 | Observation (INO) ==
--- NOTE | 2024-07-18 03:28 | EKG ---
Test Reason : SHORTNESS OF BREATH Blood Pressure : */* mmHG Vent. Rate : 88 BPM Atrial Rate : 88 BPM P-R Int : 178 ms QRS Dur : 100 ms QT Int : 344 ms P-R-T Axes : 64 -23 41 degrees QTc Int : 416 ms Normal sinus rhythm Incomplete right bundle branch block Borderline ECG No previous ECGs available Confirmed by Yosi Schultz ([id number]) on 07/18/2024 10:02:31 AM Referred By: Confirmed By: Yosi Schultz
[2024-07-18 03:36] LABS: ABG BASE EXCESS 0.3 mmol/L (-2.0-2.0); ABG HCO3 22.9 mmol/L (22-26)
[2024-07-18 03:37] LABS: ABG ALLEN TEST POS
[2024-07-18 03:52] LABS: ALANINE AMINOTRANSFERASE 25 Units/L (12-78); ALBUMIN 3.5 g/dL (3.4-5.0); ALKALINE PHOSPHATASE 61 Units/L (46-116); ASPARTATE AMINO TRANSFERASE 20 Units/L (15-37); BASOPHILS % (AUTO) 0.4 % (0.2-1.0); BLOOD UREA NITROGEN 15 mg/dL (7-18); CALCIUM 8.2 mg/dL (8.5-10.1); CARBON DIOXIDE 24.9 mmol/L (21-32); CHLORIDE 104 mmol/L (98-107); COR NA(FOR HYPERGLY) 140 mmol/L (136-145); CREATINE KINASE 73 Units/L (39-308); CREATININE 1.39 mg/dL (0.70-1.30); EOSINOPHILS % (AUTO) 0.3 % (0.9-2.9); GLUCOSE 111 mg/dL (65-99); HEMATOCRIT 37.8 % (42.0-54.0); HEMOGLOBIN 12.8 g/dL (13.5-18.0); LYMPHOCYTES # (AUTO) 0.7 X10^3/uL (1.3-2.9); LYMPHOCYTES % (AUTO) 8.4 % (21.0-51.0); MAGNESIUM 1.7 mg/dL (2.0-2.9); MEAN CORPUSCULAR HEMOGLOBIN 31.8 pg (27.0-34.0); MEAN CORPUSCULAR HGB CONC 33.9 g/dL (33.0-35.0); MEAN CORPUSCULAR VOLUME 93.6 fL (80.0-100.0); MEAN PLATELET VOLUME 8.7 fL (7.4-11.0); MONOCYTES # (AUTO) 0.7 x10^3/uL (0.3-0.8); MONOCYTES % (AUTO) 8.3 % (0.0-13.0); NEUTROPHILS % (AUTO) 82.6 % (42.0-75.0); PLATELET COUNT 138 X10^3/uL (150.0-450.0); POTASSIUM 4.1 mmol/L (3.5-5.1); RED BLOOD COUNT 4.04 X10^6/uL (4.7-6.0); RED CELL DISTRIBUTION WIDTH 14.6 % (11.6-16.5); SODIUM 140 mmol/L (136-145); TOTAL PROTEIN 6.7 g/dL (6.4-8.2); WHITE BLOOD COUNT 8.4 X10^3/uL (3.6-10.0); eGFR NON BLACK RACES 54 (>60)
--- NOTE | 2024-07-18 04:02 | DR.MBACK ---
HPI <Roger Gomez - Last Filed: 07/21/24 13:43> Time Seen Time Seen by Provider: 07/18/24 04:01 PCP Primary Care Physician: JONATHAN Curtis Chief Complaint Doctors Comments: Dr. VALENTE the patient complained of back pain he says he slid onto the floor when he started to get a little weak. The patient was confused stating I was coming this a.m. when you are over for the sinus stuff. Patient complain of cough congestion and fever since last week. Chief Complaint:: PT IN ED VIA STRETCHER PER [facility] FOR C/O BACK PAIN. PER EMS PT WAS FOUND IN FLOOR WHEN HE STATED HE SLID TO THE FLOOR. PT CONFUSED STATING "I WAS COMING THIS AM WHEN YA'LL OPENED FOR THIS SINUS STUFF". PT HAS COLD, COUGH, CONGESTION AND FEVER SINCE LAST WEEK. COVID-19 Coronavirus risk:travel/contact w/high risk person: No Has patient experienced Coronavirus symptoms: Yes Coronavirus symptoms experienced: Fever, Coughing and Shortness of Breath Source History Provided: Patient and EMS Mode of Arrival Mode of Arrival: EMS Timing Onset of Chief Complaint: 07/18/24 PMH <Roger Gomez - Last Filed: 07/21/24 13:43> PMH Past Medical History: Yes Past Medical History: Coronary Artery Disease and Hypertension Past Surgical History: Yes Surgical History: Angioplasty/Stents and Cholecystectomy Family History History of Family Medical Conditions: Yes Family Medical History: Hypertension Social History Does patient currently use any type of tobacco product: No Have you used tobacco products in the last 12 months: No Type of Tobacco Use: None Does any household member use tobacco: No Alcohol Use: None Do you use any recreational Drugs:: No Lives With: Spouse Lives Where: Home Travel Risk Coronavirus risk:travel/contact w/high risk person: No Has patient experienced Coronavirus symptoms: Yes Coronavirus symptoms experienced: Fever, Coughing and Shortness of Breath Infectious screening In the last 2 months have you had wt loss of >10#?: NO Have you had fever, night sweats or hemotysis?: No Have you traveled outside the country in the last 6 months?: No Isolation: Droplet <Amaury Bentley - Last Filed: 07/18/24 09:29> Review of Systems Constitutional: See HPI, Fever and Weakness Eyes: No Symptoms Reported ENTM: Nose Congestion Respiratoy: Non-Productive Cough Cardiovascular: No Symptoms Reported Gastrointestinal/Abdominal: No Symptoms Reported Genitourinary: No Symptoms Reported Neurological: Other ( concerned with progressive mild Dementia) Musculoskeletal: No Symptoms Reported Integumentary: No Symptoms Reported Hematologic/Lymphatic: No Symptoms Reported Endocrine: No Symptoms Reported Psychiatric: No Symptoms Reported All Other Systems: Reviewed and Negative PE <Roger Gomez - Last Filed: 07/21/24 13:43> Vital Signs Vitals: Vital Signs Temperature 98.4 F Pulse Rate 86 Pulse Rate 89 Pulse Rate 85 Pulse Rate 84 Pulse Rate 85 Pulse Rate 86 Pulse Rate 85 Pulse Rate 86 Pulse Rate 83 Pulse Rate 83 Pulse Rate 88 Pulse Rate 84 Pulse Rate 87 Pulse Rate 92 Pulse Rate 92 Respiratory Rate 20 Respiratory Rate 27 Respiratory Rate 27 Respiratory Rate 26 Respiratory Rate 23 Respiratory Rate 23 Respiratory Rate 23 Respiratory Rate 21 Respiratory Rate 27 Respiratory Rate 24 Respiratory Rate 28 Respiratory Rate 27 Respiratory Rate 28 Respiratory Rate 27 Respiratory Rate 38 Respiratory Rate 22 Blood Pressure 143/65 Blood Pressure 151/67 Blood Pressure 145/67 Blood Pressure 145/67 Blood Pressure 136/64 Blood Pressure 136/64 Blood Pressure 136/64 Blood Pressure 126/55 Blood Pressure 139/63 Blood Pressure 132/60 O2 Sat by Pulse Oximetry 98 O2 Sat by Pulse Oximetry 96 O2 Sat by Pulse Oximetry 95 O2 Sat by Pulse Oximetry 95 O2 Sat by Pulse Oximetry 97 O2 Sat by Pulse Oximetry 96 O2 Sat by Pulse Oximetry 95 O2 Sat by Pulse Oximetry 96 O2 Sat by Pulse Oximetry 94 O2 Sat by Pulse Oximetry 96 O2 Sat by Pulse Oximetry 97 O2 Sat by Pulse Oximetry 94 O2 Sat by Pulse Oximetry 95 O2 Sat by Pulse Oximetry 93 O2 Sat by Pulse Oximetry 89 <Amaury Bentley - Last Filed: 07/18/24 09:29> Vital Signs Vitals: Vital Signs Temperature 98.4 F Pulse Rate 86 Pulse Rate 89 Pulse Rate 85 Pulse Rate 84 Pulse Rate 85 Pulse Rate 86 Pulse Rate 85 Pulse Rate 86 Pulse Rate 83 Pulse Rate 83 Pulse Rate 88 Pulse Rate 84 Pulse Rate 87 Pulse Rate 92 Pulse Rate 92 Respiratory Rate 20 Respiratory Rate 27 Respiratory Rate 27 Respiratory Rate 26 Respiratory Rate 23 Respiratory Rate 23 Respiratory Rate 23 Respiratory Rate 21 Respiratory Rate 27 Respiratory Rate 24 Respiratory Rate 28 Respiratory Rate 27 Respiratory Rate 28 Respiratory Rate 27 Respiratory Rate 38 Respiratory Rate 22 Blood Pressure 143/65 Blood Pressure 151/67 Blood Pressure 145/67 Blood Pressure 145/67 Blood Pressure 136/64 Blood Pressure 136/64 Blood Pressure 136/64 Blood Pressure 126/55 Blood Pressure 139/63 Blood Pressure 132/60 O2 Sat by Pulse Oximetry 98 O2 Sat by Pulse Oximetry 96 O2 Sat by Pulse Oximetry 95 O2 Sat by Pulse Oximetry 95 O2 Sat by Pulse Oximetry 97 O2 Sat by Pulse Oximetry 96 O2 Sat by Pulse Oximetry 95 O2 Sat by Pulse Oximetry 96 O2 Sat by Pulse Oximetry 94 O2 Sat by Pulse Oximetry 96 O2 Sat by Pulse Oximetry 97 O2 Sat by Pulse Oximetry 94 O2 Sat by Pulse Oximetry 95 O2 Sat by Pulse Oximetry 93 O2 Sat by Pulse Oximetry 89 General Limitations: No Limitations General Appearance: Alert, In No Apparent Distress and Other (Appears a bit confused at times.) Head Head Exam: Normal Inspection Eyes Eye exam: Normal Appearance ENT ENT Exam: Mucous Membranes Moist and Other (Nasal Turb Erythema, Clear Disc harge. ) Chest Chest Inspection: Normal Inspection Respiratory Respiratory Exam: Other (Decreased breath sounds on RLL. Overall Coarse B/L) Cardiovascular Cardiovascular Exam: Regular Rate and Normal Rhythm Abdominal Exam Abdominal Exam: Normal Inspection, Normal Bowel Sounds and Soft Rectal Rectal Exam: Deferred Genitourinary Exam: Male: Deferred Extremities Extremities Exam: Normal Inspection Back Back Exam: Normal Inspection Neurological Neurological Exam: Alert and Oriented X3 Psychiatric Psychiatric Exam: Normal Affect and Normal Mood Skin Skin Exam: Warm, Dry, Intact and Normal Color COURSE <Roger Gomez - Last Filed: 07/21/24 13:43> Treatment Treatment: Patient was signed out to Dr. Mcarthur Did do a workup on the patient which COVID was negative he did not have no intracranial abnormality he may have bumped his head but the CT scan of the brain was negative. We did do a CBC which was normal CMP was normal he did remain hypoxic requiring oxygen. We did do a chest x-ray did not see an obvious infiltrate but we had asked that radiologist over read this x-ray and if need be the patient will be sent home on home oxygen and follow-up as needed with his primary care provider. This patient was discussed with Dr. Mcarthur <Amaury Bentley - Last Filed: 07/18/24 09:29> Treatment Treatment: Patient was signed out to Dr. Mcarthur Did do a workup on the patient which COVID was negative he did not have no intracranial abnormality he may have bumped his head but the CT scan of the brain was negative. We did do a CBC which was normal CMP was normal he did remain hypoxic requiring oxygen. We did do a chest x-ray did not see an obvious infiltrate but we had asked that radiologist over read this x-ray and if need be the patient will be sent home on home oxygen and follow-up as needed with his primary care provider. This patient was discussed with Dr. Mcarthur 9:18 - Dr. Bentley - Pt is having some weakness and difficulty with ADLs. On discussion with pt and his , she is undergoing chemo and having difficulty caring for him at home. He has apparently had multiple falls over the last year and has been progressively worse over the last week. He does have decreased breath sound on his RLL. Consultation Called: 09:21 Consultation Comments: Discussed case with Dr. Woods and he is agreeable to admit patient. ROR <Roger Gomez - Last Filed: 07/21/24 13:43> Labs Reviewed 07/20/24 04:15 07/20/24 04:15 Laboratory: 07/18/24 09:26 Blood Blood Culture - Preliminary WBC 8.4 X10^3/uL (3.6-10.0) 07/18/24 03:27 RBC 4.04 X10^6/uL (4.7-6.0) L 07/18/24 03:27 Hgb 12.8 g/dL (13.5-18.0) L 07/18/24 03:27 Hct 37.8 % (42.0-54.0) L 07/18/24 03:27 MCV 93.6 fL (80.0-100.0) 07/18/24 03:27 MCH 31.8 pg (27.0-34.0) 07/18/24 03:27 MCHC 33.9 g/dL (33.0-35.0) 07/18/24 03:27 RDW 14.6 % (11.6-16.5) 07/18/24 03:27 Plt Count 138 X10^3/uL (150.0-450.0) L 07/18/24 03:27 MPV 8.7 fL (7.4-11.0) 07/18/24 03:27 Neut % (Auto) 82.6 % (42.0-75.0) H 07/18/24 03:27 Lymph % (Auto) 8.4 % (21.0-51.0) L 07/18/24 03:27 [place] % (Auto) 8.3 % (0.0-13.0) 07/18/24 03:27 Eos % (Auto) 0.3 % (0.9-2.9) L 07/18/24 03:27 Baso % (Auto) 0.4 % (0.2-1.0) 07/18/24 03:27 Neut # (Auto) 7.0 x10^3/uL (2.2-4.8) H 07/18/24 03:27 Lymph # (Auto) 0.7 X10^3/uL (1.3-2.9) L 07/18/24 03:27 [place] # (Auto) 0.7 x10^3/uL (0.3-0.8) 07/18/24 03:27 Eos # (Auto) 0.0 x10^3/uL (0.0-0.2) 07/18/24 03:27 Baso # (Auto) 0.0 X10^3/uL (0.0-0.1) 07/18/24 03:27 Absolute Nucleated RBC 0.1 /100WBC 07/18/24 03:27 D-Dimer Cancelled 07/18/24 03:27 Sample Site Lrad 07/18/24 03:24 ABG pH 7.490 (7.35-7.45) H 07/18/24 03:24 ABG pCO2 30.0 mmHg (35.0-45.0) L 07/18/24 03:24 ABG pO2 45.0 mmHg (80.0-100.0) L* 07/18/24 03:24 ABG HCO3 22.9 mmol/L (22-26) 07/18/24 03:24 ABG O2 Saturation 85.0 % (90-100) L 07/18/24 03:24 ABG Base Excess 0.3 mmol/L (-2.0-2.0) 07/18/24 03:24 Saji Test Pos 07/18/24 03:24 A-a Gradient 67.0 mmHg 07/18/24 03:24 FiO2 21.0 07/18/24 03:24 Blood Gas Comments Betina well ms 07/18/24 03:24 Sodium 140 mmol/L (136-145) 07/18/24 03:27 Corrected Sodium 140 mmol/L (136-145) 07/18/24 03:27 Potassium 4.1 mmol/L (3.5-5.1) 07/18/24 03:27 Chloride 104 mmol/L (98-107) 07/18/24 03:27 Carbon Dioxide 24.9 mmol/L (21-32) 07/18/24 03:27 BUN 15 mg/dL (7-18) 07/18/24 03:27 Creatinine 1.39 mg/dL (0.70-1.30) H 07/18/24 03:27 Est GFR (MDRD) Af Amer > 60 (>60) 07/18/24 03:27 Est GFR (MDRD) Non-Af 54 (>60) L 07/18/24 03:27 Glucose 111 mg/dL (65-99) H 07/18/24 03:27 Lactic Acid 1.6 mmol/L (0.4-2.0) 07/18/24 03:27 Calcium 8.2 mg/dL (8.5-10.1) L 07/18/24 03:27 Corrected Calcium TNP 07/18/24 03:27 Magnesium 1.7 mg/dL (2.0-2.9) L 07/18/24 03:27 Total Bilirubin 0.40 mg/dL (0.2-1.0) 07/18/24 03:27 AST 20 Units/L (15-37) 07/18/24 03:27 ALT 25 Units/L (12-78) 07/18/24 03:27 Alkaline Phosphatase 61 Units/L (46-116) 07/18/24 03:27 Creatine Kinase 73 Units/L (39-308) 07/18/24 03:27 Troponin I High Sens 9.5 ng/L (4.0-60.0) 07/18/24 03:27 B-Natriuretic Peptide 51.1 pg/mL (0-79) 07/18/24 03:27 Total Protein 6.7 g/dL (6.4-8.2) 07/18/24 03:27 Albumin 3.5 g/dL (3.4-5.0) 07/18/24 03:27 Globulin 3.2 g/dL (2.5-4.5) 07/18/24 03:27 Albumin/Globulin Ratio 1.1 Ratio (1.1-2.1) 07/18/24 03:27 SARS-CoV-2 (PCR) Negative (NEGATIVE) 07/18/24 03:25 Influenza Type A (PCR) Negative (NEGATIVE) 07/18/24 03:25 Influenza Type B (PCR) Negative (NEGATIVE) 07/18/24 03:25 RSV (PCR) Negative (NEGATIVE) 07/18/24 03:25 <Amaury Bentley - Last Filed: 07/18/24 09:29> Labs Reviewed Laboratory: 07/18/24 09:26 Blood Blood Culture - Preliminary WBC 8.4 X10^3/uL (3.6-10.0) 07/18/24 03:27 RBC 4.04 X10^6/uL (4.7-6.0) L 07/18/24 03:27 Hgb 12.8 g/dL (13.5-18.0) L 07/18/24 03:27 Hct 37.8 % (42.0-54.0) L 07/18/24 03:27 MCV 93.6 fL (80.0-100.0) 07/18/24 03:27 MCH 31.8 pg (27.0-34.0) 07/18/24 03:27 MCHC 33.9 g/dL (33.0-35.0) 07/18/24 03:27 RDW 14.6 % (11.6-16.5) 07/18/24 03:27 Plt Count 138 X10^3/uL (150.0-450.0) L 07/18/24 03:27 MPV 8.7 fL (7.4-11.0) 07/18/24 03:27 Neut % (Auto) 82.6 % (42.0-75.0) H 07/18/24 03:27 Lymph % (Auto) 8.4 % (21.0-51.0) L 07/18/24 03:27 [place] % (Auto) 8.3 % (0.0-13.0) 07/18/24 03:27 Eos % (Auto) 0.3 % (0.9-2.9) L 07/18/24 03:27 Baso % (Auto) 0.4 % (0.2-1.0) 07/18/24 03:27 Neut # (Auto) 7.0 x10^3/uL (2.2-4.8) H 07/18/24 03:27 Lymph # (Auto) 0.7 X10^3/uL (1.3-2.9) L 07/18/24 03:27 [place] # (Auto) 0.7 x10^3/uL (0.3-0.8) 07/18/24 03:27 Eos # (Auto) 0.0 x10^3/uL (0.0-0.2) 07/18/24 03:27 Baso # (Auto) 0.0 X10^3/uL (0.0-0.1) 07/18/24 03:27 Absolute Nucleated RBC 0.1 /100WBC 07/18/24 03:27 D-Dimer Cancelled 07/18/24 03:27 Sample Site Lrad 07/18/24 03:24 ABG pH 7.490 (7.35-7.45) H 07/18/24 03:24 ABG pCO2 30.0 mmHg (35.0-45.0) L 07/18/24 03:24 ABG pO2 45.0 mmHg (80.0-100.0) L* 07/18/24 03:24 ABG HCO3 22.9 mmol/L (22-26) 07/18/24 03:24 ABG O2 Saturation 85.0 % (90-100) L 07/18/24 03:24 ABG Base Excess 0.3 mmol/L (-2.0-2.0) 07/18/24 03:24 Saji Test Pos 07/18/24 03:24 A-a Gradient 67.0 mmHg 07/18/24 03:24 FiO2 21.0 07/18/24 03:24 Blood Gas Comments Betina well ms 07/18/24 03:24 Sodium 140 mmol/L (136-145) 07/18/24 03:27 Corrected Sodium 140 mmol/L (136-145) 07/18/24 03:27 Potassium 4.1 mmol/L (3.5-5.1) 07/18/24 03:27 Chloride 104 mmol/L (98-107) 07/18/24 03:27 Carbon Dioxide 24.9 mmol/L (21-32) 07/18/24 03:27 BUN 15 mg/dL (7-18) 07/18/24 03:27 Creatinine 1.39 mg/dL (0.70-1.30) H 07/18/24 03:27 Est GFR (MDRD) Af Amer > 60 (>60) 07/18/24 03:27 Est GFR (MDRD) Non-Af 54 (>60) L 07/18/24 03:27 Glucose 111 mg/dL (65-99) H 07/18/24 03:27 Lactic Acid 1.6 mmol/L (0.4-2.0) 07/18/24 03:27 Calcium 8.2 mg/dL (8.5-10.1) L 07/18/24 03:27 Corrected Calcium TNP 07/18/24 03:27 Magnesium 1.7 mg/dL (2.0-2.9) L 07/18/24 03:27 Total Bilirubin 0.40 mg/dL (0.2-1.0) 07/18/24 03:27 AST 20 Units/L (15-37) 07/18/24 03:27 ALT 25 Units/L (12-78) 07/18/24 03:27 Alkaline Phosphatase 61 Units/L (46-116) 07/18/24 03:27 Creatine Kinase 73 Units/L (39-308) 07/18/24 03:27 Troponin I High Sens 9.5 ng/L (4.0-60.0) 07/18/24 03:27 B-Natriuretic Peptide 51.1 pg/mL (0-79) 07/18/24 03:27 Total Protein 6.7 g/dL (6.4-8.2) 07/18/24 03:27 Albumin 3.5 g/dL (3.4-5.0) 07/18/24 03:27 Globulin 3.2 g/dL (2.5-4.5) 07/18/24 03:27 Albumin/Globulin Ratio 1.1 Ratio (1.1-2.1) 07/18/24 03:27 SARS-CoV-2 (PCR) Negative (NEGATIVE) 07/18/24 03:25 Influenza Type A (PCR) Negative (NEGATIVE) 07/18/24 03:25 Influenza Type B (PCR) Negative (NEGATIVE) 07/18/24 03:25 RSV (PCR) Negative (NEGATIVE) 07/18/24 03:25 Opioid <Roger Gomez - Last Filed: 07/21/24 13:43> Opioid Risk Tool Age (Chase box if 16-45): No History of Preadolescent Sexual Abuse: No Total: 0 Total Score Risk Category: Low Risk Copyright: John FRY predicting aberrant behaviors <Amaury Bentley - Last Filed: 07/18/24 09:29> Opioid Risk Tool Total: 0 Total Score Risk Category: Low Risk Discharge Plan Diagnosis Discharge Problem: Adult failure to thrive, Acute respiratory failure with hypoxia, Pneumonia Discharge Plan Patient Disposition: 09 ADMITTED INPATIENT Condition: Stable Prescription drug monitoring program results: PDMP reviewed and no concerns identified Orders to Discharge Patient Discharge Orders: Discharge (Routine); Ordered 07/20/24 Ordered By: Suzanne Ellis
[2024-07-18] MEDS: MAG-OX TAB PO ONE (04:37)
[2024-07-18] MEDS: DUONEB 0.5 MG/3 MG (3 mL) NEB ONE (06:20)
[2024-07-18] MEDS: SOLU-Medrol 125 MG VIAL IVP ONE (06:20)
[2024-07-18] MEDS: PREDNISONE TAB 20 MG PO ONE (06:33)
[2024-07-18] MEDS: TYLENOL 500 MG TAB EXTRA STRENGTH PO ONE (06:38)
--- NOTE | 2024-07-18 09:26 | RAD ---
EXAM:AP chestHISTORY:SOBCOMPARISON:06/24/2022 r.br.br.br pneumonia, CHF/edema or pleural effusion. Evaluation is limited to some degree by patient rotation.IMPRESSION:No acute chest abnormality identified.THIS IS AN ELECTRONICALLY VERIFIED FINAL REPORT07/18/2024 9:22 AM - Electronically signed by Alvin Ventura MD
[2024-07-18] MEDS: CIPRO IV 400 MG PREMIX* 400 MG/200 ML IV.SOLN. IV ONE (09:33)
[2024-07-18] MEDS ORDERED: DUONEB 0.5 MG/3 MG (3 mL) NEB PRN (10:19)
[2024-07-18] MEDS ORDERED: TUSSIONEX PENNKINETIC SUSP PO PRN (10:19)
[2024-07-18] MEDS: MAG-OX TAB ONE (10:19)
[2024-07-18] MEDS: NS 1,000 ML IV 1,000 ML IV ONE ×2 (10:44→21:40)
[2024-07-18 11:11] VITALS: BMI 27.9
[2024-07-18] MEDS: NS 1/2 1,000 ML IV 1,000 ML IV SCH (12:40)
[2024-07-18] MEDS: MAGNESIUM SULFATE 1 GRAM/100 mL PREMIX 1 G/100 ML BAG IV ONE (12:46)
[2024-07-18] MEDS: ROBITUSSIN DM PO SCH (12:48)
[2024-07-18] MEDS: NS 1/2 1,000 ML IV 1,000 ML IV ONE (12:50)
[2024-07-18] MEDS: DUONEB 0.5 MG/3 MG (3 mL) NEB SCH (14:05)
[2024-07-18] MEDS: PULMICORT NEB TX 0.5 MG NEB SCH (20:24)
[2024-07-18] MEDS: CIPRO IV 400 MG PREMIX* 400 MG/200 ML IV.SOLN. IV SCH (21:40)
[2024-07-18] MEDS: CARDIZEM INJ 50 MG VIAL IVP ONE (21:41)
--- NOTE | 2024-07-18 22:16 | EKG ---
Test Reason : increased hr Blood Pressure : */* mmHG Vent. Rate : 130 BPM Atrial Rate : * BPM P-R Int : * ms QRS Dur : 92 ms QT Int : 370 ms P-R-T Axes : * -8 -28 degrees QTc Int : 544 ms Atrial fibrillation with rapid ventricular response Cannot rule out Inferior infarct , age undetermined Abnormal ECG When compared with ECG of 18-JUL-2024 03:25, Atrial fibrillation has replaced Sinus rhythm ST now depressed in Inferior leads T wave inversion now evident in Inferior leads Nonspecific T wave abnormality now evident in Anterior leads Confirmed by Solomon Cornell MD ([id number]) on 07/20/2024 7:36:16 AM Referred By: Confirmed By: Solomon Cornell MD
[2024-07-18] MEDS: ELIQUIS PO SCH (23:07)
[2024-07-18] MEDS: CARDIZEM TAB 30 MG PLAIN PO SCH (23:07)
[2024-07-19] MEDS: RESTORIL CAP 15 MG PO PRN (00:52)
[2024-07-19 05:00] LABS: BASOPHILS % (AUTO) 0.3 % (0.2-1.0); HEMATOCRIT 34.2 % (42.0-54.0); HEMOGLOBIN 11.6 g/dL (13.5-18.0); LYMPHOCYTES # (AUTO) 1.1 X10^3/uL (1.3-2.9); LYMPHOCYTES % (AUTO) 13.6 % (21.0-51.0); MEAN CORPUSCULAR HEMOGLOBIN 31.7 pg (27.0-34.0); MEAN CORPUSCULAR VOLUME 93.1 fL (80.0-100.0); MEAN PLATELET VOLUME 8.9 fL (7.4-11.0); MONOCYTES # (AUTO) 0.6 x10^3/uL (0.3-0.8); MONOCYTES % (AUTO) 7.7 % (0.0-13.0); NEUTROPHILS # (AUTO) 6.5 x10^3/uL (2.2-4.8); NEUTROPHILS % (AUTO) 78.4 % (42.0-75.0); PLATELET COUNT 125 X10^3/uL (150.0-450.0); RED BLOOD COUNT 3.67 X10^6/uL (4.7-6.0); RED CELL DISTRIBUTION WIDTH 14.5 % (11.6-16.5); WHITE BLOOD COUNT 8.3 X10^3/uL (3.6-10.0)
[2024-07-19 05:12] LABS: ALANINE AMINOTRANSFERASE 19 Units/L (12-78); ALBUMIN 2.8 g/dL (3.4-5.0); ALKALINE PHOSPHATASE 47 Units/L (46-116); ASPARTATE AMINO TRANSFERASE 16 Units/L (15-37); BLOOD UREA NITROGEN 18 mg/dL (7-18); CALCIUM 7.8 mg/dL (8.5-10.1); CARBON DIOXIDE 24.8 mmol/L (21-32); CHLORIDE 109 mmol/L (98-107); COR CA(FOR HYPOALB) 8.8 mg/dL (8.5-10.1); COR NA(FOR HYPERGLY) 143 mmol/L (136-145); CREATININE 1.17 mg/dL (0.70-1.30); GLUCOSE 113 mg/dL (65-99); POTASSIUM 3.7 mmol/L (3.5-5.1); SODIUM 143 mmol/L (136-145); eGFR NON BLACK RACES > 60 (>60)
--- NOTE | 2024-07-19 06:08 | RAD ---
EXAM:AP chestHISTORY:PneumoniaCOMPARISON: 025FINDINGS:Heart size normal with clear left lung. Suspect minimal infiltrate/atelectasis now noted at right base. The right upper lung is clear and no pleural fluid is noted.IMPRESSION:Findings concerning for a small focus of developing pneumonia or atelectasis in the right lower lung. Continued follow-up suggested.THIS IS AN ELECTRONICALLY VERIFIED FINAL REPORT07/19/2024 6:05 AM - Electronically signed by Alvin Ventura MD
[2024-07-19] MEDS: PULMICORT NEB TX 0.5 MG NEB ONE (07:07)
[2024-07-19] MEDS: NS 1/2 1,000 ML IV 1,000 ML IV ONE (07:08)
[2024-07-19] MEDS ORDERED: CONSULT PHARMACY - POTASSIUM & MAGNESIUM XX SCH (08:00)
[2024-07-19] MEDS: MAG-OX TAB PO SCH (08:28)
[2024-07-19] MEDS: ASPIRIN EC 81 MG PO SCH (08:29)
[2024-07-19] MEDS: ZESTRIL TAB 40 MG PO SCH (08:29)
[2024-07-19] MEDS: K-DUR TAB 20 MEQ PO SCH (08:30)
[2024-07-19] MEDS: XOPENEX 1.25 MG/3 ML NEBULE NEB SCH (09:36)
--- NOTE | 2024-07-19 15:00 | DR.H&P ---
H&P History & Physical for Day of: H&P Date: 07/19/24 Chief Complaint Chief Complaint: dyspnea History of Present Illness History of Present Illness: Patient brought to ER from home by due to worsening shortness of breath and mentation. Found to have a pneumonia with acute respiratory failure. Patient is doing well with nebs, antibiotics, and steroids. Mental status has improved but still with some cognitive delays and deficits. Nurses deny any events other than arrhythmia. Patient denies any history of atrial fibrillation but it has shown up on his telemetry and EKG. He has desponded well to diltiazem. He reports that he had a stent placed in [place] in July 2023 with a repeat cath done last month showing no new disease. Patient denies any complaints today. ROS: 12 point ROS negative except as noted in HPI. PE: Well-developed, well-nourished elderly male in no acute distress. Hearing intact conversation. Head NCAT. Extra movements grossly normal. Heart irregularly, irregular rhythm. Lungs with rhonchi bilaterally but good air movement and strong speech. Bowel sounds are present with a soft, nontender, nondistended abdomen. Mood and affect are appropriate. There is some cognitive delay. Past Medical History Past Medical History: Coronary Artery Disease and Hypertension Additional Medical History: INSOMNIA Past Surgical History Surgical History: Angioplasty/Stents and Cholecystectomy Family History Family Medical History: Hypertension Social History Does patient currently use any type of tobacco product: No Have you used tobacco products in the last 12 months: No Type of Tobacco Use: None Does any household member use tobacco: No Alcohol Use: None Drug Use: None Medications Home Medications: Home Medications Medication Instructions Recorded Confirmed Type aspirin 81 mg tablet,delayed 81 mg PO QDAY 10/26/18 07/18/24 History release (Jake Low Dose Aspirin) clonazepam 2 mg tablet 2 mg PO HS 10/26/18 07/18/24 History lisinopril 40 mg tablet 40 mg PO DAILY 10/26/18 07/18/24 History apixaban 5 mg tablet (Eliquis) 5 mg PO QDAY 07/18/24 07/18/24 History cetirizine 10 mg tablet 10 mg HS 07/18/24 07/18/24 History metoprolol succinate 25 mg 25 mg PO QDAY 07/18/24 07/18/24 History tablet,extended release 24 hr rosuvastatin 40 mg tablet 40 mg QDAY 07/18/24 07/18/24 History ticagrelor 90 mg tablet (Brilinta) 90 mg BID 07/18/24 07/18/24 History Allergies Allergies Allergy/AdvReac Type Severity Reaction Status Date / Time cephalexin [From Keflex] Allergy Intermediate CONFUSION Verified 07/18/24 03:50 Labs 07/19/24 04:10 07/19/24 04:10 Labs: 07/18/24 10:24 Sputum - Expectorated Sputum Sputum Culture - Preliminary 07/18/24 10:24 Sputum - Expectorated Sputum - Final Laboratory WBC 8.3 X10^3/uL (3.6-10.0) 07/19/24 04:10 RBC 3.67 X10^6/uL (4.7-6.0) L 07/19/24 04:10 Hgb 11.6 g/dL (13.5-18.0) L 07/19/24 04:10 Hct 34.2 % (42.0-54.0) L 07/19/24 04:10 MCV 93.1 fL (80.0-100.0) 07/19/24 04:10 MCH 31.7 pg (27.0-34.0) 07/19/24 04:10 MCHC 34.0 g/dL (33.0-35.0) 07/19/24 04:10 RDW 14.5 % (11.6-16.5) 07/19/24 04:10 Plt Count 125 X10^3/uL (150.0-450.0) L 07/19/24 04:10 MPV 8.9 fL (7.4-11.0) 07/19/24 04:10 Neut % (Auto) 78.4 % (42.0-75.0) H 07/19/24 04:10 Lymph % (Auto) 13.6 % (21.0-51.0) L 07/19/24 04:10 [place] % (Auto) 7.7 % (0.0-13.0) 07/19/24 04:10 Eos % (Auto) 0.0 % (0.9-2.9) L 07/19/24 04:10 Baso % (Auto) 0.3 % (0.2-1.0) 07/19/24 04:10 Neut # (Auto) 6.5 x10^3/uL (2.2-4.8) H 07/19/24 04:10 Lymph # (Auto) 1.1 X10^3/uL (1.3-2.9) L 07/19/24 04:10 [place] # (Auto) 0.6 x10^3/uL (0.3-0.8) 07/19/24 04:10 Eos # (Auto) 0.0 x10^3/uL (0.0-0.2) 07/19/24 04:10 Baso # (Auto) 0.0 X10^3/uL (0.0-0.1) 07/19/24 04:10 Absolute Nucleated RBC 0.0 /100WBC 07/19/24 04:10 D-Dimer Cancelled 07/18/24 03:27 Sample Site Lrad 07/18/24 03:24 ABG pH 7.490 (7.35-7.45) H 07/18/24 03:24 ABG pCO2 30.0 mmHg (35.0-45.0) L 07/18/24 03:24 ABG pO2 45.0 mmHg (80.0-100.0) L* 07/18/24 03:24 ABG HCO3 22.9 mmol/L (22-26) 07/18/24 03:24 ABG O2 Saturation 85.0 % (90-100) L 07/18/24 03:24 ABG Base Excess 0.3 mmol/L (-2.0-2.0) 07/18/24 03:24 Saji Test Pos 07/18/24 03:24 A-a Gradient 67.0 mmHg 07/18/24 03:24 FiO2 21.0 07/18/24 03:24 Blood Gas Comments Betina well ms 07/18/24 03:24 Sodium 143 mmol/L (136-145) 07/19/24 04:10 Corrected Sodium 143 mmol/L (136-145) 07/19/24 04:10 Potassium 3.7 mmol/L (3.5-5.1) 07/19/24 04:10 Chloride 109 mmol/L (98-107) H 07/19/24 04:10 Carbon Dioxide 24.8 mmol/L (21-32) 07/19/24 04:10 BUN 18 mg/dL (7-18) 07/19/24 04:10 Creatinine 1.17 mg/dL (0.70-1.30) 07/19/24 04:10 Est GFR (MDRD) Af Amer > 60 (>60) 07/19/24 04:10 Est GFR (MDRD) Non-Af > 60 (>60) 07/19/24 04:10 Glucose 113 mg/dL (65-99) H 07/19/24 04:10 Lactic Acid 1.6 mmol/L (0.4-2.0) 07/18/24 03:27 Calcium 7.8 mg/dL (8.5-10.1) L 07/19/24 04:10 Corrected Calcium 8.8 mg/dL (8.5-10.1) 07/19/24 04:10 Magnesium 1.8 mg/dL (2.0-2.9) L 07/19/24 04:10 Total Bilirubin 0.30 mg/dL (0.2-1.0) 07/19/24 04:10 AST 16 Units/L (15-37) 07/19/24 04:10 ALT 19 Units/L (12-78) 07/19/24 04:10 Alkaline Phosphatase 47 Units/L (46-116) 07/19/24 04:10 Creatine Kinase 73 Units/L (39-308) 07/18/24 03:27 Troponin I High Sens 9.5 ng/L (4.0-60.0) 07/18/24 03:27 B-Natriuretic Peptide 51.1 pg/mL (0-79) 07/18/24 03:27 Total Protein 6.0 g/dL (6.4-8.2) L 07/19/24 04:10 Albumin 2.8 g/dL (3.4-5.0) L 07/19/24 04:10 Globulin 3.2 g/dL (2.5-4.5) 07/19/24 04:10 Albumin/Globulin Ratio 0.9 Ratio (1.1-2.1) L 07/19/24 04:10 SARS-CoV-2 (PCR) Negative (NEGATIVE) 07/18/24 03:25 Influenza Type A (PCR) Negative (NEGATIVE) 07/18/24 03:25 Influenza Type B (PCR) Negative (NEGATIVE) 07/18/24 03:25 RSV (PCR) Negative (NEGATIVE) 07/18/24 03:25 Physical Exam Vital Signs: Vital Signs Temperature 97.4 F Temperature 97.5 F Pulse Rate [Left] 79 Pulse Rate [Left] 74 Pulse Rate 75 Respiratory Rate 20 Respiratory Rate 20 Blood Pressure [Left Arm] 106/55 Blood Pressure [Left Arm] 110/53 O2 Sat by Pulse Oximetry 93 O2 Sat by Pulse Oximetry 93 O2 Sat by Pulse Oximetry 92 Assessment/Plan (1) Severe sepsis: Narrative Support Text: Continue nebs, antibiotics, steroids, and IV fluids. Avoid albuterol. Status: Acute (2) Right lower lobe pneumonia: Qualifiers: Pneumonia type: due to unspecified organism Qualified Code(s): J18.9 - Pneumonia, unspecified organism Narrative Support Text: See above. Status: Acute (3) Atrial fibrillation with RVR: Narrative Support Text: Continue diltiazem p.o. Continue DOAC. Status: Acute (4) CAD (coronary artery disease): Qualifiers: Coronary Disease-Associated Artery/Lesion type: [place] artery [place] vs. transplanted heart: [place] heart Associated angina: without angina Qualifi ed Code(s): I25.10 - Atherosclerotic heart disease of [place] coronary artery without angina pectoris Narrative Support Text: Continue home meds. 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 Status: Acute (5) HTN (hypertension): Qualifiers: Hypertension type: primary hypertension Qualified Code(s): I10 - Essential (primary) hypertension Narrative Support Text: Overall stable. Continue current. Status: Chronic (6) Acute respiratory failure with hypoxia: Narrative Support Text: Continue O2 supplementation. Status: Acute
[2024-07-19] MEDS ORDERED: NS 1/2 1,000 ML IV 1,000 ML IV ONE (21:15)
[2024-07-19] MEDS: VISTARIL PO PRN (21:21)
[2024-07-20 04:47] LABS: ALANINE AMINOTRANSFERASE 22 Units/L (12-78); ALBUMIN 2.7 g/dL (3.4-5.0); ALKALINE PHOSPHATASE 46 Units/L (46-116); ASPARTATE AMINO TRANSFERASE 20 Units/L (15-37); BLOOD UREA NITROGEN 10 mg/dL (7-18); CARBON DIOXIDE 24.8 mmol/L (21-32); CHLORIDE 106 mmol/L (98-107); COR NA(FOR HYPERGLY) 141 mmol/L (136-145); CREATININE 0.98 mg/dL (0.70-1.30); GLUCOSE 119 mg/dL (65-99); MAGNESIUM 1.7 mg/dL (2.0-2.9); POTASSIUM 4.3 mmol/L (3.5-5.1); SODIUM 141 mmol/L (136-145); TOTAL PROTEIN 6.1 g/dL (6.4-8.2); eGFR NON BLACK RACES > 60 (>60)
[2024-07-20 04:52] LABS: BASOPHILS # (AUTO) 0.1 X10^3/uL (0.0-0.1); BASOPHILS % (AUTO) 0.6 % (0.2-1.0); EOSINOPHILS # (AUTO) 0.1 x10^3/uL (0.0-0.2); EOSINOPHILS % (AUTO) 0.9 % (0.9-2.9); HEMATOCRIT 33.4 % (42.0-54.0); HEMOGLOBIN 11.5 g/dL (13.5-18.0); LYMPHOCYTES # (AUTO) 1.3 X10^3/uL (1.3-2.9); LYMPHOCYTES % (AUTO) 13.8 % (21.0-51.0); MEAN CORPUSCULAR HGB CONC 34.4 g/dL (33.0-35.0); MEAN CORPUSCULAR VOLUME 92.9 fL (80.0-100.0); MEAN PLATELET VOLUME 8.9 fL (7.4-11.0); MONOCYTES # (AUTO) 0.6 x10^3/uL (0.3-0.8); MONOCYTES % (AUTO) 6.9 % (0.0-13.0); NEUTROPHILS # (AUTO) 7.1 x10^3/uL (2.2-4.8); NEUTROPHILS % (AUTO) 77.8 % (42.0-75.0); PLATELET COUNT 129 X10^3/uL (150.0-450.0); WHITE BLOOD COUNT 9.2 X10^3/uL (3.6-10.0)
[2024-07-20] MEDS ORDERED: CONSULT PHARMACY - POTASSIUM & MAGNESIUM XX SCH (08:00)
[2024-07-20] MEDS: MAGNESIUM SULFATE 50% INJ VIAL ONE (09:14)
[2024-07-20] MEDS: NS 1/2 1,000 ML IV 1,000 ML IV ONE (09:14)
[2024-07-20] MEDS: NS 1/2 1,000 ML IV 1,000 ML with MAGNESIUM SULFATE 50% INJ VIAL 1 G IV SCH (09:14)
[2024-07-20] MEDS: CARDIZEM ER 60 MG 12-HR PO SCH (11:33)
[2024-07-20 12:04] VITALS: BP 142/74; PULSE 94; RESP 18; TEMP 98.9; O2SAT 95
--- NOTE | 2024-07-22 14:36 | W.DIS.FURT ---
Summary of Discharge Discharge Summary of Date Date of Exam: 07/20/24 Admission Date Date of Admission: 07/18/24 Admission Diagnosis Patient Problems (Updated 07/19/24 @ 15:00 by Gilberto Woods MD) Adult failure to thrive (Acute) R62.7 Acute respiratory failure with hypoxia (Acute) J96.01 Pneumonia (Acute) J18.9 Hospital Course: Mr Meyers is a 69-year-old male with a past medical history of hypertension, hyperlipidemia, CAD presented due to worsening shortness of breath and mentation. ER workup showed pneumonia with acute respiratory failure. He was started on IV antibiotics, nebs and steroids. Patient is doing well with nebs, antibiotics, and steroids. Patient was noted to have atrial fibrillation with RVR which required IV medication. He was started on diltiazem 30 mg 3 times da vic which was then switched to extended release. His rate has been well- controlled. He was also started on Eliquis 5 mg twice daily. He is already established with Dr. Serrano. He denied having any cardiopulmonary symptoms. He was feeling better, labs were monitored. Echo was completed. He was stable for discharge home on p.o. antibiotics. He will follow-up with PCP and cardiology as scheduled. Vital Signs: Vital Signs (72 hours) 07/18/24 03:08 07/18/24 03:34 07/18/24 03:45 Temperature 98.4 F Pulse Rate 92 H 92 H 87 Pulse Rate [Left] Respiratory Rate 22 38 H 27 H Blood Pressure 132/60 Blood Pressure [Left Arm] O2 Sat by Pulse Oximetry 89 L 93 L 95 Oxygen Delivery Method Room Air Oxygen Flow Rate FIO2% 07/18/24 04:00 07/18/24 04:00 07/18/24 04:15 Temperature Pulse Rate 84 88 Pulse Rate [Left] Respiratory Rate 28 H 27 H Blood Pressure 139/63 Blood Pressure [Left Arm] O2 Sat by Pulse Oximetry 94 L 97 Oxygen Delivery Method Oxygen Flow Rate FIO2% 07/18/24 04:30 07/18/24 04:30 07/18/24 04:45 Temperature Pulse Rate 83 83 Pulse Rate [Left] Respiratory Rate 28 H 24 Blood Pressure 126/55 Blood Pressure [Left Arm] O2 Sat by Pulse Oximetry 96 94 L Oxygen Delivery Method Oxygen Flow Rate FIO2% 07/18/24 05:00 07/18/24 05:00 07/18/24 05:00 Temperature Pulse Rate 86 Pulse Rate [Left] Respiratory Rate 27 H Blood Pressure 136/64 136/64 Blood Pressure [Left Arm] O2 Sat by Pulse Oximetry 96 Oxygen Delivery Method Oxygen Flow Rate FIO2% 07/18/24 05:00 07/18/24 05:16 07/18/24 05:29 Temperature Pulse Rate 85 86 Pulse Rate [Left] Respiratory Rate 21 23 Blood Pressure 136/64 Blood Pressure [Left Arm] O2 Sat by Pulse Oximetry 95 96 Oxygen Delivery Method Oxygen Flow Rate FIO2% 07/18/24 05:30 07/18/24 05:30 07/18/24 05:32 Temperature Pulse Rate 85 Pulse Rate [Left] Respiratory Rate 23 Blood Pressure 145/67 145/67 Blood Pressure [Left Arm] O2 Sat by Pulse Oximetry 97 Oxygen Delivery Method Oxygen Flow Rate FIO2% 07/18/24 05:45 07/18/24 06:00 07/18/24 06:00 Temperature Pulse Rate 84 85 Pulse Rate [Left] Respiratory Rate 23 26 H Blood Pressure 151/67 Blood Pressure [Left Arm] O2 Sat by Pulse Oximetry 95 95 Oxygen Delivery Method Oxygen Flow Rate FIO2% 07/18/24 06:38 07/18/24 06:15 07/18/24 06:30 Temperature Pulse Rate 89 Pulse Rate [Left] Respiratory Rate 20 27 H Blood Pressure 143/65 Blood Pressure [Left Arm] O2 Sat by Pulse Oximetry 96 Oxygen Delivery Method Oxygen Flow Rate FIO2% 07/18/24 06:30 07/18/24 09:37 07/18/24 06:45 Temperature Pulse Rate 86 90 Pulse Rate [Left] Respiratory Rate 27 H 20 24 Blood Pressure Blood Pressure [Left Arm] O2 Sat by Pulse Oximetry 98 93 L Oxygen Delivery Method Oxygen Flow Rate FIO2% 07/18/24 07:00 07/18/24 07:00 07/18/24 07:15 Temperature Pulse Rate 90 86 Pulse Rate [Left] Respiratory Rate 23 26 H Blood Pressure 131/61 Blood Pressure [Left Arm] O2 Sat by Pulse Oximetry 91 L 94 L Oxygen Delivery Method Oxygen Flow Rate FIO2% 07/18/24 07:30 07/18/24 07:30 07/18/24 07:45 Temperature Pulse Rate 87 84 Pulse Rate [Left] Respiratory Rate 23 22 Blood Pressure 118/59 Blood Pressure [Left Arm] O2 Sat by Pulse Oximetry 92 L 91 L Oxygen Delivery Method Oxygen Flow Rate FIO2% 07/18/24 08:00 07/18/24 08:00 07/18/24 08:00 Temperature Pulse Rate 83 Pulse Rate [Left] Respiratory Rate 21 Blood Pressure 116/58 116/58 Blood Pressure [Left Arm] O2 Sat by Pulse Oximetry 92 L Oxygen Delivery Method Oxygen Flow Rate FIO2% 07/18/24 08:15 07/18/24 08:30 07/18/24 08:30 Temperature Pulse Rate 82 82 Pulse Rate [Left] Respiratory Rate 21 22 Blood Pressure 120/59 Blood Pressure [Left Arm] O2 Sat by Pulse Oximetry 92 L 92 L Oxygen Delivery Method Oxygen Flow Rate FIO2% 07/18/24 08:45 07/18/24 09:00 07/18/24 09:00 Temperature Pulse Rate 79 78 Pulse Rate [Left] Respiratory Rate 26 H 26 H Blood Pressure 123/60 Blood Pressure [Left Arm] O2 Sat by Pulse Oximetry 93 L 93 L Oxygen Delivery Method Oxygen Flow Rate FIO2% 07/18/24 09:15 07/18/24 09:30 07/18/24 09:31 Temperature Pulse Rate 75 73 Pulse Rate [Left] Respiratory Rate 24 21 Blood Pressure 133/63 Blood Pressure [Left Arm] O2 Sat by Pulse Oximetry 93 L 92 L Oxygen Delivery Method Oxygen Flow Rate FIO2% 07/18/24 09:31 07/18/24 09:45 07/18/24 10:25 Temperature 97.7 F Pulse Rate 74 71 Pulse Rate [Left] 72 Respiratory Rate 18 22 22 Blood Pressure Blood Pressure [Left Arm] 124/57 O2 Sat by Pulse Oximetry 94 L 93 L 95 Oxygen Delivery Method Nasal Cannula Oxygen Flow Rate 2 FIO2% 07/18/24 10:15 07/18/24 10:30 07/18/24 10:19 Temperature 97.7 F Pulse Rate 72 Pulse Rate [Left] Respiratory Rate 22 Blood Pressure 133/63 Blood Pressure [Left Arm] O2 Sat by Pulse Oximetry 95 Oxygen Delivery Method Room Air Nasal Cannula Nasal Cannula Oxygen Flow Rate 2 2 2 FIO2% 28 07/18/24 12:00 07/18/24 14:05 07/18/24 16:00 Temperature 97.7 F 98.4 F Pulse Rate 72 Pulse Rate [Left] 72 93 H Respiratory Rate 22 20 Blood Pressure Blood Pressure [Left Arm] 124/57 124/59 O2 Sat by Pulse Oximetry 95 95 91 L Oxygen Delivery Method Nasal Cannula Nasal Cannula Oxygen Flow Rate 2 2 FIO2% 07/18/24 19:39 07/18/24 19:00 07/18/24 20:24 Temperature 98.6 F Pulse Rate Pulse Rate [Left] 94 H Respiratory Rate 20 Blood Pressure Blood Pressure [Left Arm] 138/61 O2 Sat by Pulse Oximetry 91 L Oxygen Delivery Method Nasal Cannula Nasal Cannula Nasal Cannula Oxygen Flow Rate 2 2 FIO2% 28 07/18/24 20:24 07/19/24 00:00 07/19/24 04:00 Temperature 98.0 F 98.4 F Pulse Rate 75 Pulse Rate [Left] 124 H 81 Respiratory Rate 19 18 Blood Pressure Blood Pressure [Left Arm] 137/64 110/56 O2 Sat by Pulse Oximetry 95 92 L 90 L Oxygen Delivery Method Nasal Cannula Nasal Cannula Oxygen Flow Rate 2 2 FIO2% 07/19/24 09:10 07/19/24 08:00 07/19/24 09:36 Temperature 97.5 F L Pulse Rate Pulse Rate [Left] 74 Respiratory Rate 20 Blood Pressure Blood Pressure [Left Arm] 110/53 O2 Sat by Pulse Oximetry 92 L Oxygen Delivery Method Nasal Cannula Nasal Cannula Nasal Cannula Oxygen Flow Rate 2 4 FIO2% 36 07/19/24 09:36 07/19/24 12:00 07/19/24 16:00 Temperature 97.4 F L 97.5 F L Pulse Rate 75 Pulse Rate [Left] 79 80 Respiratory Rate 20 20 Blood Pressure Blood Pressure [Left Arm] 106/55 110/53 O2 Sat by Pulse Oximetry 93 L 93 L 95 Oxygen Delivery Method Nasal Cannula Nasal Cannula Oxygen Flow Rate 2 2 FIO2% 07/19/24 20:00 07/19/24 20:24 07/19/24 20:25 Temperature 97.9 F Pulse Rate 104 H Pulse Rate [Left] 104 H Respiratory Rate 20 Blood Pressure Blood Pressure [Left Arm] 122/63 O2 Sat by Pulse Oximetry 94 L 94 L Oxygen Delivery Method Nasal Cannula Nasal Cannula Oxygen Flow Rate 2 4 FIO2% 36 07/19/24 19:00 07/19/24 23:49 07/20/24 03:43 Temperature 98.0 F 97.6 F Pulse Rate Pulse Rate [Left] 107 H 110 H Respiratory Rate 19 20 Blood Pressure Blood Pressure [Left Arm] 144/70 138/61 O2 Sat by Pulse Oximetry 94 L 90 L Oxygen Delivery Method Nasal Cannula Nasal Cannula Nasal Cannula Oxygen Flow Rate 4 2 2 FIO2% 07/20/24 07:48 07/20/24 08:52 07/20/24 07:00 Temperature 99.5 F Pulse Rate Pulse Rate [Left] 98 H Respiratory Rate 19 Blood Pressure Blood Pressure [Left Arm] 159/89 O2 Sat by Pulse Oximetry 96 Oxygen Delivery Method Nasal Cannula Nasal Cannula Nasal Cannula Oxygen Flow Rate 2 4 3 FIO2% 36 07/20/24 09:48 07/20/24 12:00 07/20/24 12:55 Temperature 98.9 F Pulse Rate Pulse Rate [Left] 94 H Respiratory Rate 18 Blood Pressure Blood Pressure [Left Arm] 142/74 O2 Sat by Pulse Oximetry 95 Oxygen Delivery Method Nasal Cannula Nasal Cannula Room Air Oxygen Flow Rate 3 3 FIO2% 32 Labs: Laboratory Last Values WBC 9.2 X10^3/uL (3.6-10.0) 07/20/24 04:15 RBC 3.60 X10^6/uL (4.7-6.0) L 07/20/24 04:15 Hgb 11.5 g/dL (13.5-18.0) L 07/20/24 04:15 Hct 33.4 % (42.0-54.0) L 07/20/24 04:15 MCV 92.9 fL (80.0-100.0) 07/20/24 04:15 MCH 32.0 pg (27.0-34.0) 07/20/24 04:15 MCHC 34.4 g/dL (33.0-35.0) 07/20/24 04:15 RDW 15.0 % (11.6-16.5) 07/20/24 04:15 Plt Count 129 X10^3/uL (150.0-450.0) L 07/20/24 04:15 MPV 8.9 fL (7.4-11.0) 07/20/24 04:15 Neut % (Auto) 77.8 % (42.0-75.0) H 07/20/24 04:15 Lymph % (Auto) 13.8 % (21.0-51.0) L 07/20/24 04:15 Grady % (Auto) 6.9 % (0.0-13.0) 07/20/24 04:15 Eos % (Auto) 0.9 % (0.9-2.9) 07/20/24 04:15 Baso % (Auto) 0.6 % (0.2-1.0) 07/20/24 04:15 Neut # (Auto) 7.1 x10^3/uL (2.2-4.8) H 07/20/24 04:15 Lymph # (Auto) 1.3 X10^3/uL (1.3-2.9) 07/20/24 04:15 Grady # (Auto) 0.6 x10^3/uL (0.3-0.8) 07/20/24 04:15 Eos # (Auto) 0.1 x10^3/uL (0.0-0.2) 07/20/24 04:15 Baso # (Auto) 0.1 X10^3/uL (0.0-0.1) 07/20/24 04:15 Absolute Nucleated RBC 0.4 /100WBC 07/20/24 04:15 D-Dimer Cancelled 07/18/24 03:27 Sample Site Lrad 07/18/24 03:24 ABG pH 7.490 (7.35-7.45) H 07/18/24 03:24 ABG pCO2 30.0 mmHg (35.0-45.0) L 07/18/24 03:24 ABG pO2 45.0 mmHg (80.0-100.0) L* 07/18/24 03:24 ABG HCO3 22.9 mmol/L (22-26) 07/18/24 03:24 ABG O2 Saturation 85.0 % (90-100) L 07/18/24 03:24 ABG Base Excess 0.3 mmol/L (-2.0-2.0) 07/18/24 03:24 Saji Test Pos 07/18/24 03:24 A-a Gradient 67.0 mmHg 07/18/24 03:24 FiO2 21.0 07/18/24 03:24 Blood Gas Comments Betina well ms 07/18/24 03:24 Sodium 141 mmol/L (136-145) 07/20/24 04:15 Corrected Sodium 141 mmol/L (136-145) 07/20/24 04:15 Potassium 4.3 mmol/L (3.5-5.1) 07/20/24 04:15 Chloride 106 mmol/L (98-107) 07/20/24 04:15 Carbon Dioxide 24.8 mmol/L (21-32) 07/20/24 04:15 BUN 10 mg/dL (7-18) 07/20/24 04:15 Creatinine 0.98 mg/dL (0.70-1.30) 07/20/24 04:15 Est GFR (MDRD) Af Amer > 60 (>60) 07/20/24 04:15 Est GFR (MDRD) Non-Af > 60 (>60) 07/20/24 04:15 Glucose 119 mg/dL (65-99) H 07/20/24 04:15 Lactic Acid 1.6 mmol/L (0.4-2.0) 07/18/24 03:27 Calcium 8.0 mg/dL (8.5-10.1) L 07/20/24 04:15 Corrected Calcium 9.0 mg/dL (8.5-10.1) 07/20/24 04:15 Magnesium 1.7 mg/dL (2.0-2.9) L 07/20/24 04:15 Total Bilirubin 0.30 mg/dL (0.2-1.0) 07/20/24 04:15 AST 20 Units/L (15-37) 07/20/24 04:15 ALT 22 Units/L (12-78) 07/20/24 04:15 Alkaline Phosphatase 46 Units/L (46-116) 07/20/24 04:15 Creatine Kinase 73 Units/L (39-308) 07/18/24 03:27 Troponin I High Sens 9.5 ng/L (4.0-60.0) 07/18/24 03:27 B-Natriuretic Peptide 51.1 pg/mL (0-79) 07/18/24 03:27 Total Protein 6.1 g/dL (6.4-8.2) L 07/20/24 04:15 Albumin 2.7 g/dL (3.4-5.0) L 07/20/24 04:15 Globulin 3.4 g/dL (2.5-4.5) 07/20/24 04:15 Albumin/Globulin Ratio 0.8 Ratio (1.1-2.1) L 07/20/24 04:15 SARS-CoV-2 (PCR) Negative (NEGATIVE) 07/18/24 03:25 Influenza Type A (PCR) Negative (NEGATIVE) 07/18/24 03:25 Influenza Type B (PCR) Negative (NEGATIVE) 07/18/24 03:25 RSV (PCR) Negative (NEGATIVE) 07/18/24 03:25 Reason For Visit: FAILURE TO THRIVE, RESP FAIL WIH HYPOXIA,PNUEMONIA Discharge Diagnosis All Active Problems (Updated 07/19/24 @ 15:00 by Gilberto Woods MD) CAD (coronary artery disease) (Acute) Atrial fibrillation with RVR (Acute) Right lower lobe pneumonia (Acute) Severe sepsis (Acute) Abdominal pain (Acute) Gall stone (Acute) Compression fracture of L1 vertebra (Acute) COVID-19 virus infection (Acute) Hypoxia (Acute) Pneumonia due to COVID-19 virus (Acute) HTN (hypertension) (Chronic) Adult failure to thrive (Acute) Acute respiratory failure with hypoxia (Acute) Pneumonia (Acute) Plan of Treatment: Continue with present treatment and follow up plan. Pt is to keep follow up appointment as instructed and take medications as ordered. Discharge Medications Discharge Medications: cephalexin [From Keflex] Allergy (Intermediate, Verified 07/18/24 03:50) CONFUSION CONTINUE taking the following medications apixaban 5 mg tablet (Eliquis) 5 mg PO QDAY 07/18/24 [History] cetirizine 10 mg tablet 10 mg HS 07/18/24 [History] metoprolol succinate 25 mg tablet,extended release 24 hr 25 mg PO QDAY 07/18/24 [History] rosuvastatin 40 mg tablet 40 mg QDAY 07/18/24 [History] ticagrelor 90 mg tablet (Brilinta) 90 mg BID 07/18/24 [History] New Prescriptions apixaban 5 mg tablet (Eliquis) 5 mg PO BID #60 tabs 07/20/24 [Rx] cefdinir 300 mg capsule 300 mg PO BID #14 caps 07/20/24 [Rx] diltiazem HCl 60 mg capsule,extended release 12 hr 60 mg PO Q12H #60 caps 07/20/24 [Rx] Discharge Disposition Assessment: No distress noted. Discharge Disposition: To home Discharge Condition: Stable Discharge Plan Discharge Plan Hospital Course: Mr Meyers is a 69-year-old male with a past medical history of hypertension, hyperlipidemia, CAD presented due to worsening shortness of breath and mentation. ER workup showed pneumonia with acute respiratory failure. He was started on IV antibiotics, nebs and steroids. Patient is doing well with nebs, antibiotics, and steroids. Patient was noted to have atrial fibrillation with RVR which required IV medication. He was started on diltiazem 30 mg 3 times daily which was then switched to extended release. His rate has been well- controlled. He was also started on Eliquis 5 mg twice daily. He is already est ablished with Dr. Serrano. He denied having any cardiopulmonary symptoms. He was feeling better, labs were monitored. Echo was completed. He was stable for discharge home on p.o. antibiotics. He will follow-up with PCP and cardiology as scheduled. Patient Disposition: 01 HOME, SELF-CARE Condition: Stable Health Concerns: Post Hospitalization: new medications and changes needed to prevent readmission or further decline. Pt educated and given instructions on all concerns. Care Plan Goals: No distress noted. Plan of Treatment: Continue with present treatment and follow up plan. Pt is to keep follow up appointment as instructed and take medications as ordered. Assessment: No distress noted. Prescription drug monitoring program results: PDMP reviewed and no concerns identified Prescriptions: New diltiazem HCl 60 mg Capsule,Extended Release 12 Hr 60 mg PO Q12H Qty: 60 0RF Eliquis 5 mg Tablet 5 mg PO BID Qty: 60 0RF doxycycline hyclate 100 mg Capsule 100 mg PO BID Qty: 14 0RF Continued rosuvastatin 40 mg Tablet 40 mg QDAY cetirizine 10 mg Tablet 10 mg HS aspirin [Jake Low Dose Aspirin] 81 mg Tablet,Delayed Release (Dr/Ec) 81 mg PO QDAY clonazepam 2 mg tablet 2 mg PO HS Patient Comments: take 1 tablet by mouth at bedtime lisinopril 40 mg tablet 40 mg PO DAILY Patient Comments: take 1 tablet by mouth once daily Discontinued metoprolol succinate 25 mg Tablet Extended Release 24 Hr 25 mg PO QDAY Brilinta 90 mg Tablet 90 mg BID Eliquis 5 mg tablet 5 mg PO QDAY Orders to Discharge Patient Discharge Orders: Discharge (Routine); Ordered 07/20/24 Ordered By: Suzanne Ellis Follow ups/Referrals Follow ups/Referrals: TRACEY SERRANO [STAFF PHYSICIAN] - 07/30/24 2:00 pm ([facility]) Gentry Gutierrez [Primary Care Provider] - 07/27/24 1:20 am Instructions Instructions: Hypoxia, Home Oxygen Use, Adult, Atrial Fibrillation, [id number], Community-Acquired Pneumonia, Adult, [id number] Stand Alone Forms: Find Help Web Site, Post Hospital Follow Up Care
== END 2024-07-20 12:55 | disposition home or self-care (01) ==
LOC: MED/SURG 03:08 → ER 03:08 → MED/SURG 10:01
PROVIDERS: ADMIT Family Medicine; ATTEND Internal Medicine
DX: Z92.21 Personal history of antineoplastic chemotherapy; R29.6 Repeated falls; M54.89 Other dorsalgia; R53.1 Weakness; J96.01 Acute respiratory failure with hypoxia; I25.10 Atherosclerotic heart disease of native coronary artery without angina pectoris; E83.42 Hypomagnesemia; R94.31 Abnormal electrocardiogram [ECG] [EKG]; R62.7 Adult failure to thrive; J18.8 Other pneumonia, unspecified organism; I48.91 Unspecified atrial fibrillation; I10 Essential (primary) hypertension; R41.0 Disorientation, unspecified; Z03.818 Encounter for observation for suspected exposure to other biological agents ruled out; R26.89 Other abnormalities of gait and mobility; R41.841 Cognitive communication deficit